=== PATIENT | female | born 1960 | race Caucasian/White ===

== ENCOUNTER → 2023-11-23 14:22 | Outpatient (REF) | payer OTHER, SELFPAY | LOC: PAVMRI 14:22 | PROVIDERS: ATTENDING PHYSICIAN Psychiatry & Neurology Neurology | DX: G37.9 Demyelinating disease of central nervous system, unspecified (principal) | CPT/HCPCS: 70551; 72141; 72146 ==

== ENCOUNTER 2023-12-29 10:25 | Emergency (ER) | payer OTHER, SELFPAY ==
[2023-12-29 10:28] VITALS: BP 155/64
--- NOTE | 2023-12-29 10:39 | ED.GENMED ---
History of Present Illness
General
Chief Complaint: Rabies
Source: patient
Exam Limitations: none
Time Seen by Provider: 12/29/23 10:35
Nursing documentation reviewed up to this point in time: agreed with
History of Present Illness
History of Present Illness:
Patient is a 63-year-old female presenting to the emergency department following a bat exposure last night. Patient woke up yesterday evening and there was a bat flying in her bedroom. Patient's does state that he believes that she
'screamed 'which is when he came into the room also seeing the bat flying around. There is no known bite. Patient otherwise well with no other complaints today.
Patient did recently have a tetanus shot last week after a minor dog bite. She tolerated that vaccination well.
Patient did experience some vague neurologic symptoms many years ago and follows with neurology every 6 months. She did recently have a clean MRI few months ago. The symptoms did appear about a week following a flu vaccination although it was
never determined if it had any relation to vaccine. She was previously being worked up for MS at the time. Patient denies any current neurological findings. No history of known vaccination related complications.
Past History
Past History
ED Past Medical History: Hypothyroidism and Other (Back pain, sciatica, neck pain)
ED Past Surgical History: None
Social History
Tobacco: Non-smoker
Alcohol: None
Drug: None
Personal:
Living: with family
Employment: Employed
Family History
Family History: Other (Noncontributory)
Review of Systems
Review of Systems
Allergies reviewed?: Yes
All Other Systems: ROS reviewed and negative except as documented in HPI and ROS
Phy Exam
Physical Exam
Physical Exam:
Vitals: Hypertensive, otherwise vital signs stable. Afebrile
General: Patient is well appearing, no acute distress. Nontoxic appearing
Skin: Warm and dry, no rashes or lesions. Well-healing abrasion on left dorsal hand without any surrounding erythema, edema. No obvious bite mares.
Head: Normocephalic, atraumatic
Throat: Protecting airway
Neck: Normal ROM
Cardiac: Regular rate and rhythm, no murmurs.
Pulm: Normal respiratory effort, no wheezes, rales, rhonchi heard on exam.
Abdomen: Nondistended
Extremities: No evidence of cyanosis or edema
Neuro: Grossly intact
Psychiatric: Normal affect.
Course
Orders/Labs/Results
Orders:
Orders
12/29/23 11:55
Rabies Immune Globulin/Pf [HyperRAB] 1,700 unit IM NOW STA
12/29/23 12:00
Rabies Vaccine (Pcec)/Pf [Rabavert Rabies Vacc W-Diluent] 2.5 unit IM .ONCE ONE
Vital Signs
Initial and Last Documented VS:
Initial Vital Signs
Temp Pulse Resp BP Pulse Ox
99.1 F 72 18 155/64 98
12/29/23 10:28 12/29/23 10:28 12/29/23 10:28 12/29/23 10:28 12/29/23 10:28
Last Documented Vital Signs
Temp Pulse Resp BP Pulse Ox
99.1 F 72 18 155/64 98
12/29/23 10:28 12/29/23 10:28 12/29/23 10:28 12/29/23 10:28 12/29/23 10:28
MDM/Problems Addressed
Differential Diagnosis Includes:
Not limited to: Need for rabies prophylaxis
MDM/Problems Addressed:
63-year-old female presenting to the emergency department following bat exposure last night. Patient woke with bat flying around bedroom. No known bite. No other complaints. Vital stable. Physical exam as above. Patient well-appearing in no
apparent distress. She has no obvious bite mares on skin. Patient did have recent dog bite about 1 week ago on left hand which appears to be healing well without any findings suggestive of a cellulitis. Patient did receive Tdap vaccine at that
time which she tolerated well. Given unknown nature of possible bat bite given patient was asleep�to disc rabies immunoglobulin/vaccine prophylactically today with patient. Seems that patient had some vague neurologic symptoms many years ago
following a flu vaccine which was never linked to actual flu vaccine rather prompted a workup for possible MS. No diagnosis of MS at this time�patient follows with neurology closely to this day. Patient without any history of known vaccination
reactions. Shared decision making with patient. Patient did receive rabies immunoglobulin at 20 mL/kg and dose 1 of rabies vaccine in emergency department. Patient tolerated well. Patient will have remaining 3 rabies vaccination set up with
infusion center. Return precautions discussed. Patient seen with attending physician.
Chronic conditions affecting care:
N/A
Acute Exacerbation and/or Progression of Chronic Illness:
N/A
*Pulse Oximetry
Patient hypoxic: no
*EKG
Interpreted by ED Provider?: NA
*2Nd Grade Teacher Interpretation
Rate: 2Nd Grade Teacher- N/A
*Critical Care Note
Total Time (30-74mins, 75-104mins- exclusive of procedures): Not Applicable
ED Attending Note
-
Portions of this chart may have been created with voice recognition software.� Occasional wrong word or��sound alike� substitutions may have occurred due to the inherent limitations of voice recognition software.
Discharge Plan
Departure
Patient Disposition: Home (Routine Discharge)
Date of Disposition: 12/29/23
Time of Disposition: 12:16
Patient with high blood pressure during this ER visit?: Yes
Condition: Good
Covid-19: Not Applicable
Discharge Problem:
Rabies, need for prophylactic vaccination against
Instructions: BLOOD PRESSURE, Rabies
Prescriptions:
New
RabAvert (PF) 2.5 unit suspension for reconstitution
2.5 unit IM ONCE Qty: 3 0RF
Rx Instructions:
Inject 1mL on 01/01/24, 01/05/24, 01/12/24
No Action
aspirin 81 MG tablet,delayed release (DR/EC)
81 mg PO DAILY
levothyroxine 50 mcg Tablet
50 mcg PO DAILY
ibuprofen 200 mg capsule
200 mg PO Q8H PRN (Reason: fever or pain) Qty: 1 0RF
Rx Instructions:
Hold aspirin while on it ; use if for 3-4 days
Referrals:
Carmen Corey PA-C [Family Provider] -
Stand Alone Forms: Rabies Vaccine Post Exp Dosing
Activity Restrictions/Additional Instructions:
RETURN TO THE EMERGENCY DEPARTMENT WITH ANY FEVERS, SIGNIFICANT REDNESS, PAIN, OR SWELLING NEAR INJECTION SITES, SHORTNESS OF BREATH, RASH, OR ANY OTHER CONCERNS
-As discussed you will require 3 additional rabies vaccinations. They should be completed on 01/01/24, 01/05/24, 01/12/24. You should call the infusion center when you leave the department today and schedule these vaccinations
-Follow-up with primary care as needed
Monitor your symptoms closely and return to the emergency department any acute worsening/new symptoms
Interventions
Interventions:
*Risk Screen - Suicide Last Done: 12/29/23 10:28
*General Assessment Last Done: 12/29/23 10:28
*Neglect/Abuse Screening Last Done: 12/29/23 10:28
ED- Fall Risk Assessment Last Done: 12/29/23 10:38
*ED COVID-19 Vaccine History Last Done: 12/29/23 10:37
Discharge Date and Time
Print Language: DJIBOUTIAN
[2023-12-29] MEDS: HyperRAB 1700 UNIT IM (12:33)
[2023-12-29] MEDS: RABAVERT RABIES VACC W-DILUENT 2.5 UNIT IM (12:33)
[2023-12-29 13:00] VITALS: BP 146/84
== END 2023-12-29 13:01 | disposition home or self-care (01) ==
LOC: EMR 10:25
PROVIDERS: EMERGENCY PHYSICIAN Emergency Medicine; FAMILY PHYSICIAN Physician Assistant
DX: Z20.3 Contact with and (suspected) exposure to rabies (principal); Z23 Encounter for immunization; Z29.14 Encounter for prophylactic rabies immune globulin; E03.9 Hypothyroidism, unspecified
CPT/HCPCS: 99282; 90471; 96372; 90375; 90675

== ENCOUNTER 2024-01-01 13:09 | Outpatient (RCR) | payer OTHER, SELFPAY ==
[2024-01-01 13:29] VITALS: BP 118/70
[2024-01-01] MEDS: RABAVERT RABIES VACC W-DILUENT 2.5 UNIT IM (13:35)
== END 2024-01-02 23:59 | disposition home or self-care (01) ==
LOC: OID 13:09
PROVIDERS: ATTENDING PHYSICIAN Physician Assistant; FAMILY PHYSICIAN Physician Assistant
DX: Z23 Encounter for immunization (principal); Z20.3 Contact with and (suspected) exposure to rabies
CPT/HCPCS: 90471; 90675

== ENCOUNTER 2024-01-12 10:39 | Outpatient (RCR) | payer OTHER, SELFPAY ==
[2024-01-05 10:58] VITALS: BP 157/57
[2024-01-05] MEDS: RABAVERT RABIES VACC W-DILUENT 2.5 UNIT IM (11:10)
[2024-01-12] MEDS: RABAVERT RABIES VACC W-DILUENT 2.5 UNIT IM (10:52)
[2024-01-12 11:01] VITALS: BP 163/63
== END 2024-01-13 08:51 | disposition home or self-care (01) ==
LOC: OID 10:39
PROVIDERS: ATTENDING PHYSICIAN Physician Assistant; FAMILY PHYSICIAN Physician Assistant
DX: Z20.3 Contact with and (suspected) exposure to rabies (principal); Z23 Encounter for immunization
CPT/HCPCS: 90471; 90675

== ENCOUNTER → 2024-04-05 15:30 | Outpatient (REF) | payer OTHER, SELFPAY | LOC: HWWDC 15:30 | PROVIDERS: ATTENDING PHYSICIAN Internal Medicine | DX: Z12.31 Encounter for screening mammogram for malignant neoplasm of breast (principal) | CPT/HCPCS: 77063; 77067 ==

== ENCOUNTER → 2024-04-19 10:27 | Outpatient (REF) | payer OTHER, SELFPAY | LOC: RAD 10:27 | PROVIDERS: ATTENDING PHYSICIAN Physician Assistant; FAMILY PHYSICIAN Internal Medicine | DX: M25.551 Pain in right hip (principal); M54.50 Low back pain, unspecified | CPT/HCPCS: 72110; 73502 ==

== ENCOUNTER → 2024-05-27 09:58 | Outpatient (REF) | payer OTHER, SELFPAY | LOC: MRI 3T 09:58 | PROVIDERS: ATTENDING PHYSICIAN Nurse Practitioner | DX: K86.9 Disease of pancreas, unspecified (principal) | CPT/HCPCS: 74183; A9575 ==

== ENCOUNTER 2024-09-09 06:20 | Day surgery (SDC) | payer OTHER, SELFPAY | END 2024-09-09 11:51 | disposition home or self-care (01) | LOC: GI 06:20 | PROVIDERS: ATTENDING PHYSICIAN Internal Medicine Gastroenterology | DX: K44.9 Diaphragmatic hernia without obstruction or gangrene (principal); K31.89 Other diseases of stomach and duodenum; R13.10 Dysphagia, unspecified; R12 Heartburn | CPT/HCPCS: 43239; 88305; 88342 ==

== ENCOUNTER 2024-10-11 16:53 | Emergency (ER) | payer OTHER, SELFPAY ==
[2024-10-11 16:58] VITALS: BP 161/93
[2024-10-11 17:32] LABS: % Basophils 0.4 % (0-2); % Eosinophils 0.3 % (0-6); % Immature Granulocytes 0.3 % (0-0.5); % Monocytes 5.3 % (1.7-9.3); % Neutrophils 69.7 % (42.2-75.2); Absolute Basophils 0.1 10^3/uL (0-0.2); Absolute Lymphocytes 3.1 10^3/uL (1.2-3.4); Absolute Monocytes 0.7 10^3/uL (0.1-0.6); Hematocrit 44.1 % (37.0-47.0); Hemoglobin 15.7 g/dL (12.0-16.0); Mean Corp Hgb Conc. 35.6 g/dL (33.0-37.0); Mean Corpuscular Hgb 31.7 pg (27.0-31.0); Mean Corpuscular Volume 89.1 fL (81.0-99.0); Mean Platelet Volume 10.7 fL (7.4-10.4); Nucleated Red Blood Cells % 0 %; Platelet Count 252 10^3/uL (130-400); Red Blood Cell Count 4.95 10^6/uL (4.20-5.40); Red Cell Dist. Width 11.9 % (11.5-14.5)
[2024-10-11 17:54] LABS: ALT (SGPT) 15 U/L (0-35); AST (SGOT) 17 U/L (14-36); Albumin 4.3 g/dl (3.5-5.0); Alkaline Phosphatase 95 U/L (38-126); Blood Urea Nitrogen 20 mg/dl (7-17); Calcium 9.4 mg/dl (8.4-10.2); Carbon Dioxide 25 mmol/L (22-30); Chloride 104 mmol/L (98-107); Glucose 158 mg/dl (70-99); Potassium 4.3 mmol/L (3.5-5.1); Sodium 137 mmol/L (135-145); Total Bilirubin 0.7 mg/dl (0.2-1.3); Total Protein 7.1 g/dl (6.3-8.2); eGFR > 60.00
[2024-10-11 17:57] LABS: Troponin I < 0.012 ng/ml
[2024-10-11 18:08] VITALS: BP 168/111
--- NOTE | 2024-10-11 18:08 | ED.GENMED ---
History of Present Illness
General
Chief Complaint: Post Operative Problem(s)
Source: patient
Exam Limitations: none
Time Seen by Provider: 10/11/24 17:54
Nursing documentation reviewed up to this point in time: agreed with
History of Present Illness
History of Present Illness:
64-year-old female with history as noted presents to the ER for evaluation of neck pain, headache, brain fog/dizziness. Patient notably had 2 dental implants left lower jaw on 10/[address] Lewis, a cna in [place]. Patient reports that a
few days later she started to develop some soreness in the left side of her neck as well as some headache (she describes 'scalp soreness'), dizziness and brain fog. The symptoms have been consistent since then. She had been on a Medrol Dosepak
postoperatively and initially she attributed these symptoms to the steroid however she discontinued the steroid 2 days ago and has not had any improvement and so she was referred to the ER to be evaluated. She denies any fevers or chills. Denies
any cough, chest pain or respiratory issues. She denies any sore throat. She denies any trauma. She denies any other complaints.
Past History
Past History
ED Past Medical History: Hypothyroidism and Other (Back pain, sciatica, neck pain)
ED Past Surgical History: None
Social History
Tobacco: Non-smoker
Alcohol: None
Drug: None
Personal:
Living: with family
Employment: Employed
Family History
Family History: Other (Noncontributory)
Review of Systems
Review of Systems
All Other Systems: ROS reviewed and negative except as documented in HPI and ROS
Constitutional: Reports fatigue; Denies fever or chills
EENT: Denies sore throat or runny nose
Respiratory: Denies cough or trouble breathing
Cardiac: Denies chest pain
ABD/GI: Denies abdominal pain, vomiting or diarrhea
: Denies flank pain
Musculoskeletal: Reports neck pain; Denies back pain
Neurological: Reports dizzy and headache; Denies weakness or numbness
Phy Exam
Physical Exam
Physical Exam:
General: Awake, alert, oriented x3; no acute distress
Head: Normocephalic, atraumatic
Eyes: Conjunctiva normal, EOMI, pupils equal round and reactive to light bilaterally
Throat: Airway intact, handling secretions
Neck: Trachea midline, supple without meningismus, full range of motion with minimal pain; she has some mild tenderness along the left upper trapezius but no midline cervical spine tenderness
Lungs: Clear to auscultation bilaterally, no wheezing, rales, rhonchi
Heart: Regular rate and rhythm, no murmurs, gallops, or rubs
Neuro: Cranial nerves intact, speech fluid without dysarthria or aphasia, no limb ataxia, motor and sensory intact in all extremities
Skin: no rash in area of concern
Extremities: No edema in extremities, equal pulses in all extremities
Scores
Heart Failure Risk
Heart Failure Risk Score: Not Applicable
Heart Score for Chest Pain Patients
STEMI patient?: Not applicable
Withdrawal Assessment of Alcohol
Withdrawal Assessment Completed?: Not applicable
Sepsis
Sepsis Screening
Sepsis Assessment: Sepsis Ruled Out
Sepsis Screen
Sepsis Screen: Sepsis Ruled Out
Date: 10/11/24
Time: 20:54
Course
Orders/Labs/Results
Orders:
Orders
10/11/24 17:04
EKG [Electrocardiogram (*1)] Urgent
Reason for Study: Vertigo / Dizzy
EKG- Treatment ONCE
10/11/24 17:25
Complete Blood Count/With Diff Urgent
Comprehensive Metabolic Panel Urgent
Troponin I Urgent
10/11/24 18:07
CT Head & Neck Angio W/wo IV Urgent
Comment:
Reason For Exam: left neck pain, headache, dizziness
Abnormal Lab Results
10/11/24
17:25
WBC 13.0 H 10^3/uL
(4.8-10.8)
MCH 31.7 H pg
(27.0-31.0)
MPV 10.7 H fL
(7.4-10.4)
Absolute Neuts (auto) 9.0 H 10^3/uL
(1.4-6.5)
Absolute Monos (auto) 0.7 H 10^3/uL
(0.1-0.6)
BUN 20 H mg/dl
(7-17)
Glucose 158 H mg/dl
(70-99)
10/11/24 17:25
10/11/24 17:25
Vital Signs
Initial and Last Documented VS:
Initial Vital Signs
Temp Pulse Resp BP Pulse Ox
36.6 C 105 16 161/93 96
10/11/24 16:58 10/11/24 16:58 10/11/24 16:58 10/11/24 16:58 10/11/24 16:58
Last Documented Vital Signs
Temp Pulse Resp BP Pulse Ox
36.6 C 84 18 133/62 98
10/11/24 16:58 10/11/24 20:28 10/11/24 20:28 10/11/24 20:28 10/11/24 20:28
MDM/Problems Addressed
Differential Diagnosis Includes:
Neck strain, vertebral/carotid dissection, postoperative infection/abscess, referred postoperative pain; very low clinical suspicion for meningitis without fever, no vomiting, no meningeal signs and with 6 days of symptoms with generally benign
appearance on exam
MDM/Problems Addressed:
64-year-old female presents for evaluation of neck pain, headache and dizziness for the past few days in setting of recent dental implants. Hypertensive and mildly tachycardic but otherwise normal vitals. Physical exam as above. She had lab work
sent in triage including a CBC which showed a marginal leukocytosis in the setting of recent steroid use. CMP no clinically significant abnormalities. Plan to check CT of the head and neck to rule out dissection or postoperative collection. Will
reassess after the above.
CTA head and neck negative for any acute abnormality�no infection or vascular pathology noted. Vitals have been stable throughout ED stay. Low suspicion for emergent pathology at this point; symptoms could be residual side effect from steroid use,
postprocedural pain or simply torticollis/neck strain. I think she is stable for discharge can follow-up with her primary doctor as well as her dentist/cna as an outpatient. Continue NSAIDs and Tylenol as needed for pain. Patient feels
comfortable with this plan. Spoke about return precautions. All questions answered.
Acute Exacerbation and/or Progression of Chronic Illness:
Acute hypertensive
Acute Exacerbation and/or Progression of Chronic Illness: HTN
*Radiology
Radiology exam reviewed: radiology read reviewed
*Pulse Oximetry
Patient hypoxic: no
*EKG
Interpreted by ED Provider?: Yes
Heart Rate: 94
Rate: normal
Rhythm: sinus
[place]: normal axis
Interval: normal interval
QRS Pattern: normal QRS
Ischemia: no ischemia
*Critical Care Note
Total Time (30-74mins, 75-104mins- exclusive of procedures): Not Applicable
Data Reviewed
Source: patient and family (Son)
Further Testing Considered But Not Given:
Considered need for lumbar puncture
ED Attending Note
-
Portions of this chart may have been created with voice recognition software.� Occasional wrong word or��sound alike� substitutions may have occurred due to the inherent limitations of voice recognition software.
Discharge Plan
Departure
Patient Disposition: Home (Routine Discharge)
Date of Disposition: 10/11/24
Time of Disposition: 20:44
Patient with high blood pressure during this ER visit?: Yes
Discharge Problem:
Neck pain
Instructions: Neck pain - ED discharge instructions
Prescriptions:
No Action
levothyroxine 50 mcg Tablet
50 mcg PO DAILY
ibuprofen 200 mg capsule
200 mg PO Q8H PRN (Reason: fever or pain) Qty: 1 0RF
Rx Instructions:
Hold aspirin while on it ; use if for 3-4 days
RabAvert (PF) 2.5 unit suspension for reconstitution
2.5 unit IM ONCE Qty: 3 0RF
Rx Instructions:
Inject 1mL on 01/01/24, 01/05/24, 01/12/24
Referrals:
Adolfo Sigala MD [Family Provider, Internal Medicine] - Call in 1-3 days for appt
Activity Restrictions/Additional Instructions:
Thank you for visiting the Emergency Department at [facility].
1. Please schedule a follow up appointment as directed. Call first thing tomorrow morning to make an appointment.
2. If indicated, please take your medications as instructed and indicated on discharge paperwork.
3. If any of your symptoms do not improve, or persist, or become more severe within 6-12 hours, please return to the emergency department for further care.
4. Please return to the emergency department if you develop a headache, neck pain/stiffness, fever greater than 100.4F, chest pain, shortness of breath, persistent nausea, vomiting, slurred speech, difficulty walking, numbness/tingling, weakness,
signs of infection or any other symptoms that are worrisome to you.
Please call [phone] if you have any questions.
Interventions
Interventions:
*Risk Screen - Suicide Last Done: 10/11/24 16:58
*General Assessment Last Done: 10/11/24 16:58
*Neglect/Abuse Screening Last Done: 10/11/24 19:51
*ED- Fall Risk Assessment Last Done: 10/11/24 18:20
*ED COVID-19 Vaccine History Last Done: 10/11/24 18:20
ED-Skin Assessment Last Done: 10/11/24 18:40
Discharge Date and Time
Print Language: ALBANIAN
[2024-10-11 18:10] VITALS: BMI 34.9
[2024-10-11 19:00] VITALS: BP 167/70
[2024-10-11 20:28] VITALS: BP 133/62
== END 2024-10-11 21:00 | disposition home or self-care (01) ==
LOC: EMR 16:53
PROVIDERS: Emergency Medicine; EMERGENCY PHYSICIAN Emergency Medicine; FAMILY PHYSICIAN Internal Medicine
DX: M54.2 Cervicalgia (principal); E03.9 Hypothyroidism, unspecified; I10 Essential (primary) hypertension
CPT/HCPCS: 99284; 70496; 70498; 80053; 84484; 85025; 93005; Q9967

== ENCOUNTER → 2024-10-17 09:05 | Outpatient (REF) | payer OTHER, SELFPAY | LOC: HWRAD 09:05 | PROVIDERS: ATTENDING PHYSICIAN Internal Medicine; FAMILY PHYSICIAN Internal Medicine | DX: R05.3 Chronic cough (principal) | CPT/HCPCS: 71046 ==

== ENCOUNTER 2024-10-25 10:17 | Inpatient (IN) | payer OTHER, SELFPAY ==
[2024-10-23 17:33] VITALS: BP 177/65
--- NOTE | 2024-10-23 18:10 | ED.GENMED ---
History of Present Illness
General
Chief Complaint: Numbness
Time Seen by Provider: 10/23/24 18:09
History of Present Illness
History of Present Illness:
TIME OF INITIAL EVALUATION
- 6:15 PM
REVIEW OF OLD RECORDS
- Dental implants October 03, 2024, hypothyroidism. The patient was here for endoscopy 09/09/2024. The patient was here with neck pain October 11, 2024, at that time white count was 13.0, chemistries and troponin relatively unremarkable.
Note:
CHIEF COMPLAINT(S)
Numbness on the right side of the face, dizziness, blurred vision.
HISTORY OF PRESENT ILLNESS
The patient is a 64-year-old female with a history of dizziness and weakness following dental implants placed on the left side. Symptoms began three days after the procedure, with dizziness and neck pain initially, and have evolved to include
numbness on the right side of the face. The patient also reports disorientation, blurred vision, and intermittent diplopia, particularly while attempting to drive. The symptoms have progressively worsened over the past two months. Despite the
neurological evaluation and persistent follow-up, no definitive diagnosis has been made. 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
acute disseminated encephalomyelitis (ADEM). Current neurological findings reveal stable sensation and strength, with cranial nerve assessment showing normal function. Prior imaging and labs from ER and outpatient visits have reportedly been normal.
ADDITIONAL HISTORY OBTAINED FROM SOURCES OTHER THAN THE PATIENT
According to prior medical evaluations, there were no stroke-related findings on CT imaging.
EXTERNAL RECORDS REVIEWED
Review of prior MRIs with neurologists has shown no significant abnormalities. Laboratory tests, as interpreted from the patient�s report, have returned normal.
CHRONIC MEDICAL CONDITIONS SIGNIFICANTLY AFFECTING CARE
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
REVIEW OF SYSTEMS
- Neurological: Weakness, dizziness, numbness on the right side of the face, blurred vision, diplopia.
- Vision: Blurred vision noted with both eyes open.
- Musculoskeletal: No weakness or coordination issues noted.
- General: No recent fever reported.
PHYSICAL EXAM
- Neurological: Normal cranial nerve function including facial sensation and motor testing. Coordination appeared intact with finger-nose testing. No dysmetria noted.
- Ophthalmologic: Visual acuity testing with noted reduction in visual clarity with both eyes open. Normal ocular motility. Visual acuity approximately 20/25 in each eye individually, 20/40 with both eyes.
- Oral examination: No swelling or visible abnormalities noted at the site of dental implants.
- General: Well appearing in no distress
- Cardiovascular: No murmurs, normal heart rate, regular rhythm, No chest wall tenderness
- Pulmonary: No respiratory distress, breath sounds are clear and equal
- Abdomen: Soft with no peritoneal signs, no tenderness
- Psychiatric: Appropriate mental status, normal insight and judgement
- Extremities: Nontender, no edema, moves all extremities equally
- Skin: No rash, no lesions
PLAN
The plan includes contacting the on-call neurologist to discuss the necessity of further MRI imaging to evaluate the current symptomatology. The patient is to follow up with their primary care physician and have the pending MRI performed as
scheduled.
DIFFERENTIAL DIAGNOSIS
The Differential Diagnosis includes, in no particular order and is not limited to:
- Trigeminal neuropathy
- Idiopathic intracranial hypertension
- Multiple sclerosis
- Acute disseminated encephalomyelitis (ADEM)
- Dental implant-related nerve injury
- Transient ischemic attack
- Peripheral vestibular disorder
- Central vestibular disorder
- Stroke or brain ischemia
- Migraine with aura
RADIOLOGY
- MRI pending for tomorrow
EKG
- Not indicated
LABS
- CBC and chemistries unremarkable however the glucose is noted to be 164
UPDATE
-10/23/24 - 18:43
Patient has been under neurological observation for possible multiple sclerosis (MS) over the past three years. Multiple MRIs have shown findings suggestive of MS, although no formal diagnosis has been made due to the lack of clinical symptoms.
Initial concerns arose following a flu shot taken 10 days prior to the onset of symptoms three years ago. The patient reports ongoing MRI reports suggest MS without new lesions. Recently, the patient has experienced new, atypical symptoms including
numbness and vision changes, which may correlate with MS manifestations. A note has been sent to both the radiologist and neurologist for further assessment. Outpatient management is being considered pending specialist feedback.
SUMMARY OF ENCOUNTER
The patient presented with symptoms that have progressively worsened over the past two months including numbness on the right side of the face, dizziness, blurred vision, and disorientation. These symptoms began following a dental procedure. Despite
previous evaluations, no definitive diagnosis has been established. Management involved discussions with radiology and neurology to determine the appropriate timing for MRI imaging.
MANAGEMENT OF THE PATIENTS CARE WAS DISCUSSED WITH
I discussed the case with radiology and neurology, specifically Dr. Cortez.
PLAN
The patient is to be admitted to the hospital for an MRI scheduled for tomorrow, as recommended by neurology.
PATHOLOGIES TO CONSIDER
- Stroke or brain ischemia
- Multiple sclerosis
- Acute disseminated encephalomyelitis (ADEM)
- Trigeminal neuropathy
- Transient ischemic attack
Past History
Past History
ED Past Medical History: Hypothyroidism and Other (Back pain, sciatica, neck pain)
ED Past Surgical History: None
Social History
Tobacco: Non-smoker
Alcohol: None
Drug: None
Personal:
Living: with family
Employment: Employed
Family History
Family History: Other (Noncontributory)
Phy Exam
Physical Exam
Physical Exam:
See HPI
Course
Orders/Labs/Results
Orders:
Orders
10/23/24 19:12
Basic Metabolic Panel Urgent
Complete Blood Count/With Diff Urgent
Abnormal Lab Results
10/23/24
19:12
MCH 32.1 H pg
(27.0-31.0)
MPV 10.7 H fL
(7.4-10.4)
Chloride 111 H mmol/L
(98-107)
Glucose 164 H mg/dl
(70-99)
10/23/24 19:12
10/23/24 19:12
Vital Signs
Initial and Last Documented VS:
Initial Vital Signs
Temp Pulse Resp BP Pulse Ox
37.1 C 77 18 177/65 98
10/23/24 17:33 10/23/24 17:33 10/23/24 17:33 10/23/24 17:33 10/23/24 17:33
Last Documented Vital Signs
Temp Pulse Resp BP Pulse Ox
37.1 C 73 16 147/65 98
10/23/24 17:33 10/23/24 18:41 10/23/24 18:41 10/23/24 18:41 10/23/24 18:41
*Pulse Oximetry
SaO2: 98
Oxygen Mode of Delivery: Room air
Patient hypoxic: no
*Critical Care Note
Total Time (30-74mins, 75-104mins- exclusive of procedures): Not Applicable
ED Attending Note
-
Portions of this chart may have been created with voice recognition software.� Occasional wrong word or��sound alike� substitutions may have occurred due to the inherent limitations of voice recognition software.
Discharge Plan
Departure
Prescriptions:
No Action
levothyroxine 50 mcg Tablet
50 mcg PO DAILY
ibuprofen 200 mg capsule
200 mg PO Q8H PRN (Reason: fever or pain) Qty: 1 0RF
Rx Instructions:
Hold aspirin while on it ; use if for 3-4 days
RabAvert (PF) 2.5 unit suspension for reconstitution
2.5 unit IM ONCE Qty: 3 0RF
Rx Instructions:
Inject 1mL on 01/01/24, 01/05/24, 01/12/24
Referrals:
UNKNOWN - PT DOES,NOT KNOW [Unknown Provider]
Interventions
Interventions:
*Risk Screen - Suicide Last Done: 10/23/24 17:34
*General Assessment Last Done: 10/23/24 17:34
*Neglect/Abuse Screening Last Done: 10/23/24 17:34
*ED- Fall Risk Assessment Last Done: 10/23/24 18:41
*ED COVID-19 Vaccine History Last Done: 10/23/24 18:41
ED- Neurological Assessment Last Done: 10/23/24 18:41
Discharge Date and Time
Print Language: COMORAN
[2024-10-23 18:41] VITALS: BP 147/65
[2024-10-23 19:21] LABS: % Basophils 0.5 % (0-2); % Eosinophils 0.2 % (0-6); % Immature Granulocytes 0.1 % (0-0.5); % Lymphocytes 30.4 % (20.5-51.1); % Monocytes 4.2 % (1.7-9.3); % Neutrophils 64.6 % (42.2-75.2); Absolute Lymphocytes 2.5 10^3/uL (1.2-3.4); Absolute Monocytes 0.3 10^3/uL (0.1-0.6); Absolute Neutrophils 5.2 10^3/uL (1.4-6.5); Hematocrit 39.1 % (37.0-47.0); Hemoglobin 13.9 g/dL (12.0-16.0); Mean Corp Hgb Conc. 35.5 g/dL (33.0-37.0); Mean Corpuscular Hgb 32.1 pg (27.0-31.0); Mean Corpuscular Volume 90.3 fL (81.0-99.0); Mean Platelet Volume 10.7 fL (7.4-10.4); Nucleated Red Blood Cells % 0 %; Platelet Count 205 10^3/uL (130-400); Red Blood Cell Count 4.33 10^6/uL (4.20-5.40); Red Cell Dist. Width 12.2 % (11.5-14.5); White Blood Cell Count 8.1 10^3/uL (4.8-10.8)
[2024-10-23 19:44] LABS: Blood Urea Nitrogen 16 mg/dl (7-17); Calcium 8.8 mg/dl (8.4-10.2); Carbon Dioxide 24 mmol/L (22-30); Chloride 111 mmol/L (98-107); Glucose 164 mg/dl (70-99); Potassium 3.8 mmol/L (3.5-5.1); Sodium 141 mmol/L (135-145); eGFR > 60.00
--- NOTE | 2024-10-23 20:08 | HPS.HSE ---
Family Physician
-
Family Physician: Adolfo Sigala
Chief Complaint
-
blurred / double vision, R facial paresthesias after L lower dental implants 10/04
History of Present Illness
HPI
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 she was seen at ER:
- for dizziness and weakness following dental implants(10/04/24) placed on the left side.
- dizziness and neck pain initially, and have evolved to include numbness on the right side of the face.
- patient also reports disorientation, blurred vision, and intermittent diplopia, particularly while attempting to drive.
- symptoms have progressively worsened over the past two months.
- Despite the neurological evaluation and persistent follow-up, no definitive diagnosis has been made.
- Current neurological findings reveal stable sensation and strength, with cranial nerve assessment showing normal function. - Prior imaging and labs from ER and outpatient visits have reportedly been normal.
Medical History
Past Medical History
Past Medical History: Reports Hypothyroidism
Past Surgical History: Reports None
Social History
Tobacco: Non-smoker
Alcohol: None
Personal:
Living: With Family
Family History
Family History: Not pertinent
Allergies / Home Medications
Allergies reflects when Allergies were last updated in [email or web address].
Home Medications with original date entered in [email or web address]
Allergy/Medication List:
Allergies
Allergy/AdvReac Type Severity Reaction Status Date / Time
cephalexin monohydrate Allergy Unknown Unknown Verified 03/16/22 02:30
[From [facility]]
Home Medications
aspirin 81 mg tablet,delayed release 81 mg PO DAILY 10/26/20
levothyroxine 50 mcg tablet 50 mcg PO DAILY 03/14/22
Review of Systems
-
Constitutional: Reports No Symptoms
EENT: Reports No Symptoms
Respiratory: Reports No Symptoms
Cardiac: Reports No Symptoms
Abdomen/GI: Reports No Symptoms
: Reports No Symptoms
Musculoskeletal: Reports No Symptoms
Skin: Reports No Symptoms
Neurological: Reports See HPI
Endocrine: Reports No Symptoms
Hematologic/Lymphatic: Reports No Symptoms
Psych: Reports No Symptoms
Physical Exam
Vital Signs
Vital Signs
Temp Pulse Resp BP Pulse Ox
98.7 F 73 16 147/65 98
10/23/24 17:33 10/23/24 18:41 10/23/24 18:41 10/23/24 18:41 10/23/24 18:41
Physical Exam
General: Well Developed, Well Nourished and No Apparent Distress
HEENT: NormoCephalic, Moist mucous membranes and Atraumatic
Respiratory: Clear
Cardiac: S1/S2 and Regular Rhythm; No Murmur or Rub
GI: Soft, Non Tender, Non Distended and Normal Bowel Sounds; No Organomegaly
Rectal: Deferred by Provider
Musculoskeletal: No Clubbing, No Cyanosis and No Edema
Skin: No Rash
Neuro: Nonfocal/grossly intact
Laboratory Results
-
10/23/24 19:12
10/23/24 19:12
Data Reviewed
-
CT Scan: Report Reviewed by me
Medical Tests (Nuc Med, Echo, EKG etc): Report Reviewed by me
Lab Data: Labs Reviewed by me
Old Records: Reviewed
Impression/Plan
-
Relevant VS
10/23/24
17:33 10/23/24
18:41
Temp 98.7 F
Pulse 77
Resp Rate 18
Blood pressure 177/65 147/65
SaO2 98
Oxygen Mode of Delivery Room air
10/11/24 EKG
NORMAL SINUS RHYTHM
NORMAL ECG
WHEN COMPARED WITH ECG OF 26-NOV-2021 11:55,
NO SIGNIFICANT CHANGE WAS FOUND
Confirmed by ANTONI CARLSON, [id number] on 10/12/2024 7:19:41 AM
10/11/24 H & N CTA
No significant vascular occlusion, aneurysm or dissection.
11/23/23 MR Brain Without Contrast
1. Moderate demyelinating disease (MULTIPLE SCLEROSIS) in the cerebral hemispheres and right middle cerebellar peduncle which appears unchanged from 03/19/2023.
2. Mild cerebral and cerebellar volume loss.
11/23/23 MRI of the thoracic spine without contrast
- No definite evidence for thoracic spinal cord signal intensity abnormality, with no convincing evidence for focal area of demyelination on today's exam.
- No evidence for spinal cord compression or central canal stenosis.
Last hospitalist admission:
ASSESSMENT & PLAN
Pending Rx reconciliation
Subacute abnormal vision ( diplopia) and r facial paresthesias after L lower dental implants 10/04. ? MS
No significant vascular occlusion, aneurysm or dissection. per recwent H & N CTA
Upon arrival to ER NIHSS 0
Subjectively patient is concern MS
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
- ER dw Neurologist suggest observation and MRI Brain in AM
Prior Brain MRI report of Moderate demyelinating disease (MULTIPLE SCLEROSIS) in the cerebral hemispheres and right middle cerebellar peduncle which appears unchanged from 03/19/2023.
- Brain MRI with contract for AM
Hypothyroidism
- TSH
- continue Synthroid
HX diffuse hepatic steatosis
Diverticulosis
DVT Px: LMWH
Full code
OBS MS
[2024-10-23 21:35] VITALS: BP 147/74; BMI 31.3
[2024-10-23 23:25] VITALS: BP 149/57
--- NOTE | 2024-10-24 01:19 | PTCARENOTE ---
Addendum entered by Davion Patel RN 10/24/24 07:09:
Pt unsure about her home medications and dosage.
Original Note:
Pt aaox3 able to make her needs known.Pt encouraged to call for help as needed.Pt denies of any pain at this time.No orders for telemetry or NIH at this time [employer] O[employer]ATOR regional transfer liaison made aware of it, pt refused scd boots.Plan of care continued on pt.Pt
oriented to room & call [place] in reach.
[2024-10-24] MEDS: PEPCID 20 MG PO (05:38)
[2024-10-24 07:05] VITALS: BP 168/77
[2024-10-24 07:06] LABS: Hematocrit 36.8 % (37.0-47.0); Hemoglobin 13.1 g/dL (12.0-16.0); Mean Corp Hgb Conc. 35.6 g/dL (33.0-37.0); Mean Corpuscular Hgb 32.1 pg (27.0-31.0); Mean Corpuscular Volume 90.2 fL (81.0-99.0); Mean Platelet Volume 10.8 fL (7.4-10.4); Platelet Count 185 10^3/uL (130-400); Red Blood Cell Count 4.08 10^6/uL (4.20-5.40); Red Cell Dist. Width 12.3 % (11.5-14.5); White Blood Cell Count 7.6 10^3/uL (4.8-10.8)
[2024-10-24 08:01] LABS: TSH 3.48 uIU/ml (0.47-4.68)
[2024-10-24 08:20] LABS: Vitamin B12 277 pg/ml (239-931)
--- NOTE | 2024-10-24 09:02 | CON.NEURO ---
Addendum entered and electronically signed by Yemi Mejia MD 10/24/24 15:28:
Studies reviewed.
I have personally examined the patient. I reviewed and agree with the SPECTROSCOPIST's Note.
My addenda:
Awake, alert, interactive. No acute distress.
Speech intact.
Follows 2-step requests w/o difficulty. No tremor.
Extra-ocular movements grossly intact.
Facial movements full and symmetric. Hearing intact to normal conversational volume.
Normal UE movements bilaterally.
Neck: full ROM.
Chest: no dyspnea
Heart: no JVD
Ext: (-) Clubbing, (-) Cyanosis, (-) Edema
IMPRESSIONS/RECOMMENDATIONS:
Abrupt onset of diplopia and lightheadedness
Not clear that this represents a flareup of multiple sclerosis with the exception of the possibility of a brainstem enhancing lesion in a patient who is becoming evidently noncompliant with initiation of medications to prevent exacerbation
Check MRI of brain for completeness with and without contrast
If there is evidence of an enhancing lesion, would provide high-dose steroids
Patient was advised to reconsider use of anti-MS medications as routine therapy
Start vitamin B12 replacement
Follow vitamin D level as low vitamin D in a patient with multiple sclerosis may be provocative of flareups
D/W patient
All questions answered.
Will continue to follow pending results.
Original Note:
Documented by User: Darcy Hopkins NP 10/24/24 12:08
Neuro Assessment/Plan
Assessment
This is a 64 yo female with a past medical history of HTN and hypothyroidism presented to [facility] on 10/23/2024 with dizziness and weakness following dental implants placed on 10/03/2024 on the left side.
CTA head and neck (10/11/2024): No significant vascular occlusion, aneurysm or dissection.
Brain MRI (11/23/2023):
1. Moderate demyelinating disease (MULTIPLE SCLEROSIS) in the cerebral hemispheres and right middle cerebellar peduncle which appears unchanged from 03/19/2023.
2. Mild cerebral and cerebellar volume loss.
Cervical MRI (11/23/2023):
Better seen on concurrent MRI of the brain, regions of increased T2 and STIR signal within the right middle cerebellar peduncle and within the medulla, likely representing areas of demyelination in this patient with a history of multiple sclerosis.
Evaluation of the cervical spine is limited because of motion artifact. Given this limitation, no convincing evidence for focal demyelinating lesion within the cervical spinal cord.
Changes of degenerative disc disease, greatest at C4-5. These findings appear stable from examination of March 19, 2023.
Thoracic MRI (11/23/2023):
No definite evidence for thoracic spinal cord signal intensity abnormality, with no convincing evidence for focal area of demyelination on today's exam.
No evidence for spinal cord compression or central canal stenosis.
Plan
Impressions:
I. brain lesions and symptomatology suspicious for demyelinating disease (Multiple Sclerosis), less likely acute disseminated encephalomyelitis (ADEM)
Plan:
-obtain brain and cervical MRI with and without to look for enhancing lesions
-pending imaging, may need to treat with high dose corticosteroids
-follow up with outpatient neurologist, Dr. Barbosa
-consider starting disease modifying therapy outpatient
-Vitamin B12 low at 277, start supplementation
-Vitamin D level low in the past at 26, new level pending
Consultation
Order
Date of Consultation: 10/24/24
Requesting Provider: hospitalist/ Dr. Marino
Reason for Consult: paresthesia
Subjective/Objective
Subjective Data
Date of Service: October 24, [address] Sofie Grover from 03/16/2024:
'Jaylene Cunningham is a 64 y.o. female with demyelinating disease who is here for follow up. She follows with Dr. Josh Barbosa neurology [facility], last seen 02/09/24 at which time the diagnosis was not certain, but included MS and ADEM. She preferred to defer
DMT given clinical and radiological stability since March 2022 following a urinary tract infection and influenza vaccine which produced abrupt onset of numerous demyelinating appearing lesions in the brain within a week of an otherwise
unremarkable MRI of the brain. She also had multiple neurologic symptoms at that time which improved with IV Solu-Medrol, and has not recurred since that time. She denies any new MS symptoms. She feels stable and does not wish to start DMT. Prior
history: Mar 13 she developed a strange sensation in her low back. She went to [facility] - and was found to be febrile, UTI treated with Zosyn. Did not feel well the entire week. She then developed the acute onset of binocular diplopia.
Went to [facility]. No clear diagnosis. Numbness BUEs and BLEs acute onset. Could not speak, nasal speech. Went to [facility] and was hospitalized and received 500 mg IV methylprednisolone twice daily for 5 days. Symptoms improved.
Resolved completely over a few days. Called a friend who is a physician and was told to see a neurologist. Saw Dr. Barbosa who brought up the possibility of steroids - he told her it could be ADEM. No confusion, no encephalopathy per . Saw "Clarita"Bruno for a consult who recommended Tysabri. JAY, MOG, AQP4 were negative. OCBs were negative. Denies fatigue, walks 3-4 miles a day. Very shaken by the diagnosis and needs more information. Mar 2021 she developed dizziness that was only 2 min in
duration - she went to the ER at [place] and MRI revealed 'one little spot'.'
She presented to [facility] on 10.23.2024 with dizziness and weakness following dental implants placed on 10/03/2024 on the left side. Symptoms began three days after the procedure, with dizziness and neck pain initially, and have evolved to include
numbness on the right side of the face. The patient also reports blurred vision particularly while attempting to drive. She reports numbness to hands and fingers bilaterally. Denies dropping things. The symptoms have progressively worsened over the
past two months. She currently follows with neurologist Dr. Barbosa from [facility]. The patient has a history of extensive MRI evaluations for over two years due to apparent reactions to a vaccine, with a working diagnosis
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 Of note, she had similar symptoms three years ago back in 2021 and received steroids with complete relief of symptoms. Current neurological
findings reveal stable sensation and strength, with cranial nerve assessment showing normal function. Prior imaging and labs from ER and outpatient visits have reportedly been normal. Upon arrival to ER NIHSS 0. Current labs unremarkable except for
low Vitamin B 12 level.
Objective Data
Vital Signs
Temp Pulse Resp BP Pulse Ox
97.9 F 66 16 168/77 98
10/24/24 07:05 10/24/24 07:05 10/24/24 07:05 10/24/24 07:05 10/24/24 07:05
Lab Results
10/24/24 06:40
Sodium 141 mmol/L (135-145) 10/23/24 19:12
Potassium 3.8 mmol/L (3.5-5.1) 10/23/24 19:12
BUN 16 mg/dl (7-17) 10/23/24 19:12
Glucose 164 mg/dl (70-99) H 10/23/24 19:12
Calcium 8.8 mg/dl (8.4-10.2) 10/23/24 19:12
Vitamin B12 277 pg/ml (239-931) 10/24/24 06:40
Patient Allergies
cephalexin monohydrate (From Keflex) Allergy (Unknown, Verified 10/23/24 17:32)
Unknown
CVA Assessment
Onset of Stroke Symptoms
Onset of symptoms known: Yes
Date of onset of symptoms: 10/07/24
NIH Stroke Score
Level of Consciousness: 0 - Alert
LOC Questions: 0-Answers both correctly
LOC Commands: 0-Performs both correctly
Best Horizontal Gaze: 0-Normal
Visual Meza: 0=Normal, no visual loss
Facial Palsy: 0=Normal, symmetrical
Motor - Right Arm: 0=No drift 10 seconds
Motor - Left Arm: 0=No drift 10 seconds
Motor - Right Le-No drift 5 seconds
Motor - Left Le-No drift 5 seconds
Limb Ataxia: 0-Absent
Sensation: 0-Normal
Best Language: 0-No aphasia
Dysarthria: 0-Normal
Extinction and Inattention: 0-No abnormality
NIH Total Score:: 0
Tenecteplase Contraindications
Reasons for NON-Tx with Thrombolytics ABSOLUTE Exclusions: Time-out of window
IAT Contraindications: NIHSS < 6 and >6 hrs from onset/last seen normal
Modified [place] Score (MRS)
-
Modified Jorge Scale (mRS): No symptoms
Score: 0
Review of Systems
-
History Source: Patient
Constitutional: No Symptoms
EENT: Blurry Vision
Respiratory: No Symptoms
Cardiac: No Symptoms
Abdomen/GI: No Symptoms
Genitourinary: No Symptoms
Musculoskeletal: No Symptoms
Skin: No Symptoms
Neuro: Dizzy and Numbness (mouth numbness)
Physical Exam
-
General: No Apparent Distress, Comfortable and Appears Stated Age
HEENT: Normocephalic, Atraumatic and Anicteric
Neck: Full Range of Motion
Respiratory: No Dyspnea
Cardiac: No JVD
GI: Non-distended
Skin: Unremarkable
Extremities: No Clubbing, No Cyanosis and No Edema
Psych: Intact Judgement/Insight
Extended Neurological Exam
Mood & Affect: Mood Unremarkable
Attention Span & Concentration: Awake, Alert, Interactive and No Difficulty with 2 Step Request
Memory: Unremarkable
Tremor: Hand Tremor Absent and Head Tremor Absent
Involuntary Movement: None
Speech: Quality Unremarkable, Quantity Unremarkable and Rate of Production Unremarkable
Cranial Nerve II: Left Eye: Pupillary Reactivity Unremarkable and Pupillary Size Unremarkable
Cranial Nerve II: Right Eye: Pupillary Reactivity Unremarkable and Pupillary Size Unremarkable
Cranial Nerves III, IV, : Extraocular Movement: Extraocular Movement Left (left gaze restricted)
Cranial Nerve VII: Facial Symmetry: Normal Facial Symmetry
Cranial Nerve VIII: Hearing: Unremarkable Hearing to Normal Conversational Volume
Cranial Nerves IX, X: Palate Movement: Palate Elevation Symmetric
Cranial Nerve XI: Shoulder Shrug: Unremarkable
Cranial Nerve XII: Tongue Protusion: Midline
Muscle Strength, Overall: Full Throughout
Pronator Drift: No Drift in Upper Extremities and No Drift in Lower Extremities
Deep Tendon Reflexes: Clonus (2 beats of clonus to left) and 3+ (lower extremities)
Cold Sensation: Unremarkable
Vibration Sensation: Unremarkable
Touch Sensation: Unremarkable
Coordination: [id number] Testing Unremarkable and Reaches for Objects without Difficulty
Data Reviewed
-
CT-A: Report Reviewed and Image Reviewed
MRI Head: Report Reviewed and Image Reviewed
MRI Cervical Spine: Report Reviewed and Image Reviewed
MRI Thoracic Spine: Report Reviewed and Image Reviewed
Labs: Report Reviewed
Reviewed with: Physician and Patient
Old Records: Summarized
Medications
-
Active Medications
Generic Name Dose Route Start Last Admin
Trade Name Freq PRN Reason Stop Dose Admin
Acetaminophen 650 mg 10/23/24 21:38
Acetaminophen 325 Mg Tablet PO 11/20/24 21:37
Q4HPRN PRN
mild pain/[place]/temp> 100.4F
Bisacodyl 10 mg 10/23/24 21:38
Bisacodyl 10 Mg Rectal Suppository RECTAL 11/20/24 21:37
[id number] PRN
constipation
Famotidine 20 mg 10/25/24 08:00
Famotidine 20 Mg Tablet PO 11/22/24 07:59
DAILY NARESH
Levothyroxine Sodium 75 mcg 10/25/24 06:00
Levothyroxine 75 Mcg Tablet PO 11/22/24 05:59
DAILY @ 0600 NARESH
Lorazepam 1 mg 10/24/24 07:48
Lorazepam 1 Mg Tablet PO 10/24/24 23:59
ONCE NARESH
Polyethylene Glycol 17 grams 10/23/24 21:38
Polyethylene Glycol Powder 17 Grams Packet PO 11/20/24 21:37
DAILYPRN PRN
constipation
Senna/Docusate Sodium 1 tablet 10/23/24 21:38
Docusate W/Senna (Shania-Colace) Tablet PO 11/20/24 21:37
BIDPRN PRN
constipation
Sodium Chloride 0 flush 10/23/24 22:00
Sodium Chloride 0.9% (Flush) Syringe IV 11/20/24 21:59
PER PROTOCOL NARESH
Home Medications
�Medication �Instructions �Recorded
ibuprofen 200 mg capsule 200 mg PO Q8H PRN fever or pain #1 03/20/22
cap
rabies vaccine, pcec (PF) 2.5 unit 2.5 unit IM ONCE #3 ea 12/29/23
IM susp (RabAvert (PF))
levothyroxine 0.75 mcg PO DAILY 10/24/24
Past History
Past History
ED Past Medical History: Hypothyroidism and Other (Back pain, sciatica, neck pain)
ED Past Surgical History: None
Family/Social History
Tobacco: Non-smoker
Alcohol: None
Drug: None
Personal:
Living: with family
Employment: Employed
Family History: Other (Noncontributory)

Documented by User: Yemi Mejia MD 10/24/24 15:17
CVA Assessment
NIH Stroke Score
NIH Total Score:: 0
Modified [place] Score (MRS)
-
Score: 0
--- NOTE | 2024-10-24 09:10 | W.PN.HOSP.TC ---
Today's Communication/Plan
-
f/w neurology recommendations
Assessment / Plan
Assessment / Plan
Physical Exam
General: Well Developed, Well Nourished and No Apparent Distress
HEENT: NormoCephalic, Moist mucous membranes and Atraumatic
Respiratory: Clear
Cardiac: S1/S2 and Regular Rhythm
GI: Soft, Non Tender, Non Distended
Musculoskeletal: No Clubbing, No Cyanosis and No Edema
Skin: No Rash
Neuro: Nonfocal motor deficits, AAOX3, she followed commands
Psych: calm
Subacute abnormal vision ( diplopia) and r facial paresthesias after L lower dental implants 10/04.
No significant vascular occlusion, aneurysm or dissection. per recent H & N CTA
Upon arrival to ER NIHSS 0
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
f/w neurology recommendations
Prior Brain MRI report of Moderate demyelinating disease (MULTIPLE SCLEROSIS) in the cerebral hemispheres and right middle cerebellar peduncle which appears unchanged from 03/19/2023.
- Brain MRI with contract for AM
Hypothyroidism
- continue Synthroid
HX diffuse hepatic steatosis
Diverticulosis
DVT Px: LMWH
Full code
Total time spent to see the patient, examine the patient, review data and lab result, discuss treatment plan with patient, nursing staff around 55 minutes
Anticipated Discharge: Within 24 hours
Subjective/Interval History
-
Date of Service: October 24, 2024
No sob
No chest pain
reports numbness in face, blurred vision
Objective Data
-
Labs:
Laboratory Results
10/24/24
06:40
WBC 7.6
Hgb 13.1
Hct 36.8 L
Plt Count 185
Sodium Pending
Potassium Pending
Chloride Pending
Carbon Dioxide Pending
BUN Pending
Creatinine Pending
Glucose Pending
Calcium Pending
Vital Signs:
Vital Signs
Temp Pulse Resp BP Pulse Ox
97.9 F 66 16 168/77 98
10/24/24 07:05 10/24/24 07:05 10/24/24 07:05 10/24/24 07:05 10/24/24 07:05
--- NOTE | 2024-10-24 09:38 | PTCARENOTE ---
Pt accused staff of taking her own vitamin d tablet bottle. Bottle was found in pt's belonging bag. Pt insisted on taking her own supplement, med was added to home med list. Dr. Dai aware that med list was updated and that pr took her own dose
this morning.
[2024-10-24] MEDS: VITAMIN D3 (cholecalciferol) PO (10:07)
--- NOTE | 2024-10-24 12:31 | CM ---
Met with patient to obtain information for assessment. Patient's spouse was at bedside. She stated that she lives with him in a two story house with 4 steps to enter. She was independent with all dressing, bathing, ADLs, and self care. 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 She drives and can transport herself to her appointments and do her own shopping. She denied any DME in her home. She has never had VN services. She has not been to a SNF.
Patient has a prescription plan and uses, [facility] in [place] for all of her medications.
Her PCP is, Adolfo Sigala.
Plan: Case management will continue to follow and assist with discharge planning. Most likely patient will not have needs. OBS for provided, reviewed and signed.
[2024-10-24 14:48] LABS: Blood Urea Nitrogen 15 mg/dl (7-17); Calcium 9.4 mg/dl (8.4-10.2); Carbon Dioxide 17 mmol/L (22-30); Chloride 118 mmol/L (98-107); Estimated Creatinine Clearance 88 ml/min; Glucose 125 mg/dl (70-99); Potassium 4.4 mmol/L (3.5-5.1); Sodium 146 mmol/L (135-145); eGFR > 60.00
[2024-10-24 15:00] VITALS: BP 160/63
[2024-10-24] MEDS: ATIVAN 1 MG PO (17:30)
[2024-10-24 23:08] VITALS: BP 166/71
[2024-10-25 03:17] VITALS: BP 141/57
[2024-10-25] MEDS: SYNTHROID 75 MCG PO (05:57)
[2024-10-25] MEDS: PEPCID 20 MG PO (06:00)
[2024-10-25] MEDS: VITAMIN B-12 1000 MCG PO (07:46)
[2024-10-25] MEDS: VITAMIN D3 (cholecalciferol) 50 MCG PO (07:46)
[2024-10-25 07:56] VITALS: BP 164/69
[2024-10-25 08:25] LABS: Vitamin D, 25-OH*** 35.5 ng/mL (30-80)
--- NOTE | 2024-10-25 08:37 | W.PN.NEURO.1 ---
Addendum entered and electronically signed by Yemi Mejia MD 10/25/24 18:19:
Studies reviewed.
I have personally examined the patient. I reviewed and agree with the PRINTING GRAY CLOTH TENDER's Note.
My addenda:
Awake, alert, interactive. No acute distress.
Speech intact. Unclear if patient has poor recall as she asked repetitive questions
Extra-ocular movements with OS esophoria.
Facial movements full and symmetric. Hearing intact to normal conversational volume.
Normal UE movements bilaterally.
Neck: full ROM.
Chest: no dyspnea
Heart: no JVD
Ext: (-) Clubbing, (-) Cyanosis, (-) Edema
IMPRESSIONS/RECOMMENDATIONS:
Abrupt onset of diplopia, lightheadedness; in a patient with previously diagnosed CRUSHER SETTER demyelinating disease, now demonstrating by MRI of brain evidence of enhancing lesions suggestive of exacerbation of multiple sclerosis
Initiate methylprednisolone most likely needed for 5-day course, careful monitoring for hypertension and hyperglycemia
Initiate vitamin B12 replacement
Borderline low vitamin D, increase vitamin D supplementation
Occupational therapy due to the patient's ongoing diplopia
D/W patient / family
All questions answered.
Will continue to follow patient.
Original Note:
Today's Communication / Plan
-
Plan:
-start Methylprednisolone 1g x 3 days, if no improvement then continue for 5 days
-follow up with outpatient neurologist, Dr. Barbosa or Dr. Grover
-needs to start disease modifying therapy outpatient
-Vitamin B12 low at 277, start supplementation
-Vitamin D level 35.5, increase D3
Neuro Assessment/Plan
Assessment
This is a 64 yo female with a past medical history of HTN and hypothyroidism presented to [facility] on 10/23/2024 with dizziness and weakness following dental implants placed on 10/03/2024 on the left side with most recent brain MRI showing active
demyelinating lesions regarding her multiple sclerosis.
Brain MRI (10/24/2024):
Interval progression of white matter lesions in keeping with demyelinating lesions of multiple sclerosis, compared to prior exam 11/23/2023. There is postcontrast enhancement involving several of these lesions in the bilateral centrum semiovale
regions, suggesting active disease.
No MR evidence for acute intracranial infarct or hemorrhage.
CTA head and neck (10/11/2024): No significant vascular occlusion, aneurysm or dissection.
Brain MRI (11/23/2023):
1. Moderate demyelinating disease (MULTIPLE SCLEROSIS) in the cerebral hemispheres and right middle cerebellar peduncle which appears unchanged from 03/19/2023.
2. Mild cerebral and cerebellar volume loss.
Cervical MRI (11/23/2023):
Better seen on concurrent MRI of the brain, regions of increased T2 and STIR signal within the right middle cerebellar peduncle and within the medulla, likely representing areas of demyelination in this patient with a history of multiple sclerosis.
Evaluation of the cervical spine is limited because of motion artifact. Given this limitation, no convincing evidence for focal demyelinating lesion within the cervical spinal cord.
Changes of degenerative disc disease, greatest at C4-5. These findings appear stable from examination of March 19, 2023.
Thoracic MRI (11/23/2023):
No definite evidence for thoracic spinal cord signal intensity abnormality, with no convincing evidence for focal area of demyelination on today's exam.
No evidence for spinal cord compression or central canal stenosis.
Plan
Impressions:
I. Abrupt onset of diplopia and lightheadedness in the setting of multiple sclerosis exacerbation as evidence by brain MRI with new enhancing lesions
Plan:
-start Methylprednisolone 1g x 3 days, if no improvement then continue for 5 days
-follow up with outpatient neurologist, Dr. Barbosa or Dr. Grover
-needs to start disease modifying therapy outpatient
-Vitamin B12 low at 277, start supplementation
-Vitamin D level 35.5, increase D3
Subjective/Objective
Subjective Data
Date of Service: October 25, 2024
Patient still having numbness to face. No new neurologic complaints.
Objective Data
Vital Signs
Temp Pulse Resp BP Pulse Ox
97.7 F 67 18 164/69 95
10/25/24 07:56 10/25/24 07:56 10/25/24 07:56 10/25/24 07:56 10/25/24 07:56
Lab Results
10/24/24 06:40
10/24/24 06:40
Sodium 146 mmol/L (135-145) H 10/24/24 06:40
Potassium 4.4 mmol/L (3.5-5.1) 10/24/24 06:40
BUN 15 mg/dl (7-17) 10/24/24 06:40
Glucose 125 mg/dl (70-99) H 10/24/24 06:40
Calcium 9.4 mg/dl (8.4-10.2) 10/24/24 06:40
Vitamin B12 277 pg/ml (239-931) 10/24/24 06:40
Patient Allergies
cephalexin monohydrate (From Ventrix) Allergy (Unknown, Verified 10/23/24 17:32)
Unknown
Review of Systems
-
History Source: Patient
Constitutional: No Symptoms
EENT: Blurry Vision
Respiratory: No Symptoms
Cardiac: No Symptoms
Abdomen/GI: No Symptoms
Genitourinary: No Symptoms
Musculoskeletal: No Symptoms
Skin: No Symptoms
Neuro: Dizzy and Numbness (mouth numbness)
Physical Exam
-
General: No Apparent Distress, Comfortable and Appears Stated Age
HEENT: Normocephalic, Atraumatic and Anicteric
Neck: Full Range of Motion
Respiratory: No Dyspnea
Cardiac: No JVD
GI: Non-distended
Skin: Unremarkable
Extremities: No Clubbing, No Cyanosis and No Edema
Psych: Unremarkable
Extended Neurological Exam
Mood & Affect: Mood Unremarkable
Attention Span & Concentration: Awake, Alert, Interactive and No Difficulty with 2 Step Request
Memory: Unremarkable
Tremor: Hand Tremor Absent and Head Tremor Absent
Involuntary Movement: None
Speech: Quality Unremarkable, Quantity Unremarkable and Rate of Production Unremarkable
Cranial Nerve II: Left Eye: Pupillary Reactivity Unremarkable and Pupillary Size Unremarkable
Cranial Nerve II: Right Eye: Pupillary Reactivity Unremarkable and Pupillary Size Unremarkable
Cranial Nerves III, IV, : Extraocular Movement: Extraocular Movement Left (left gaze restricted)
Cranial Nerve VII: Facial Symmetry: Normal Facial Symmetry
Cranial Nerve VIII: Hearing: Unremarkable Hearing to Normal Conversational Volume
Muscle Strength, Overall: Full Throughout
Pronator Drift: No Drift in Upper Extremities and No Drift in Lower Extremities
Deep Tendon Reflexes: Clonus (2 beats of clonus to left) and 3+ (lower extremities)
Cold Sensation: Unremarkable
Vibration Sensation: Unremarkable
Touch Sensation: Unremarkable
Coordination: Reaches for Objects without Difficulty
Data Reviewed
-
MRI Head: Report Reviewed and Image Reviewed
Labs: Report Reviewed
Reviewed with: Physician, Nurse, Patient and Family
Old Records: Summarized
[2024-10-25] MEDS: SOLU-MEDROL 258 MG IV (09:08)
--- NOTE | 2024-10-25 09:09 | W.PN.HOSP.TC ---
Today's Communication/Plan
-
IV steroid
ISS and Lantus
PRN hyydralazine
Assessment / Plan
Assessment / Plan
Physical Exam
General: Well Developed, Well Nourished and No Apparent Distress
HEENT: NormoCephalic, Moist mucous membranes and Atraumatic
Respiratory: Clear
Cardiac: S1/S2 and Regular Rhythm
GI: Soft, Non Tender, Non Distended
Musculoskeletal: No Clubbing, No Cyanosis and No Edema
Skin: No Rash
Neuro: Nonfocal motor deficits, AAOX3, she followed commands
Psych: calm
# Acute MS exacerbation
d/w neurology, recommending to give 1 gm of iV Methylprednisolone for 3-5 days depending on clinical response
d/w pt and her at bed side, agreed to TX and understood potential side effects of high dose steroid
Patient follows with Dr Barbosa at [facility] and reported that she knew about lesions but neurologist was not certain about MS diagnosis and possible related to previous vaccine. patient wanted to discuss with Dr barbosa, will give her disk. Also I
put a call out to him.
Appreciate neurology recommendations
# pre diabetes
Expect high blood glucose related to steroid
Will do ISS and add Lantus
Hypothyroidism
- continue Synthroid
HX diffuse hepatic steatosis
Diverticulosis
DVT Px: LMWH
Full code
Total time spent to see the patient, examine the patient, review data and lab result, discuss treatment plan with patient, , neurologist, nursing staff around 59 minutes
Anticipated Discharge: > 48 hours
Subjective/Interval History
-
Date of Service: October 25, 2024
Same blurred vision
No chest pain
No sob
No abdominal pain
Objective Data
-
Vital Signs:
Vital Signs
Temp Pulse Resp BP Pulse Ox
97.7 F 67 18 164/69 95
10/25/24 07:56 10/25/24 07:56 10/25/24 07:56 10/25/24 07:56 10/25/24 07:56
I&O
10/24/24 10/25/24 10/26/24
06:59 06:59 06:59
Intake Total 1200 / 1200
Balance 1200 / 1200
[2024-10-25 12:09] LABS: Glucose - Point of Care 148 mg/dl (70-99)
[2024-10-25] MEDS: NOVOLOG FLEXPEN-MODERATE RESISTANCE SC (12:16)
[2024-10-25 13:26] VITALS: BP 169/76
--- NOTE | 2024-10-25 13:36 | PTCARENOTE ---
BP rechecked- 169/76. Offered Hydralazine 5mg PO PRN. Patient refused to take medication.
[2024-10-25 16:01] VITALS: BP 172/69
--- NOTE | 2024-10-25 16:35 | CM ---
Spoke with pt informed her she was changed to inpatient.
Offered VN she declined need.
[place].
PLAN Home no needs
[2024-10-25 16:40] LABS: Glucose - Point of Care 332 mg/dl (70-99)
[2024-10-25] MEDS: NOVOLOG FLEXPEN-MODERATE RESISTANCE 7 UNITS SC (16:42)
[2024-10-25 21:12] LABS: Glucose - Point of Care 242 mg/dl (70-99)
[2024-10-25] MEDS: LANTUS 0.15 UNITS SC (21:32)
[2024-10-25 23:13] VITALS: BP 169/74
[2024-10-25] MEDS: APRESOLINE 5 MG PO (23:20)
[2024-10-26] VITALS (7 sets, daily range): BP systolic 136–162; BP diastolic 51–83; PULSE 90
[2024-10-26 02:48] LABS: Glucose - Point of Care 199 mg/dl (70-99)
[2024-10-26] MEDS: SYNTHROID 75 MCG PO (05:04)
[2024-10-26] MEDS: PEPCID 20 MG PO ×2 (05:11→20:10)
[2024-10-26] MEDS: PEPCID PO (05:33)
[2024-10-26 07:35] LABS: Glucose - Point of Care 182 mg/dl (70-99)
[2024-10-26 07:38] LABS: Hematocrit 40.2 % (37.0-47.0); Hemoglobin 14.4 g/dL (12.0-16.0); Mean Corp Hgb Conc. 35.8 g/dL (33.0-37.0); Mean Corpuscular Hgb 31.8 pg (27.0-31.0); Mean Corpuscular Volume 88.7 fL (81.0-99.0); Mean Platelet Volume 11.5 fL (7.4-10.4); Platelet Count 204 10^3/uL (130-400); Red Blood Cell Count 4.53 10^6/uL (4.20-5.40); Red Cell Dist. Width 12.1 % (11.5-14.5); White Blood Cell Count 10.8 10^3/uL (4.8-10.8)
[2024-10-26 08:09] LABS: Blood Urea Nitrogen 17 mg/dl (7-17); Calcium 9.5 mg/dl (8.4-10.2); Carbon Dioxide 20 mmol/L (22-30); Chloride 111 mmol/L (98-107); Estimated Creatinine Clearance 88 ml/min; Glucose 191 mg/dl (70-99); Potassium 4.4 mmol/L (3.5-5.1); Sodium 140 mmol/L (135-145); eGFR > 60.00
[2024-10-26] MEDS: NORVASC PO (08:41)
[2024-10-26] MEDS: LANTUS 0.15 UNITS SC ×2 (08:41→20:10)
[2024-10-26] MEDS: SOLU-MEDROL 258 MG IV (08:41)
[2024-10-26] MEDS: NOVOLOG FLEXPEN-MODERATE RESISTANCE 1 UNITS SC (08:41)
[2024-10-26] MEDS: VITAMIN B-12 1000 MCG PO (08:41)
[2024-10-26] MEDS: VITAMIN D3 (cholecalciferol) 125 MCG PO (08:41)
[2024-10-26] MEDS: NOVOLOG FLEXPEN 10 UNITS SC ×3 (08:42→16:39)
[2024-10-26 08:49] LABS: Glycohemoglobin (HgbA1c) 6.5 % (4.0-5.6)
[2024-10-26] MEDS: NORVASC 5 MG PO (08:56)
--- NOTE | 2024-10-26 09:30 | W.PN.HOSP.TC ---
Today's Communication/Plan
-
Insulin adjustment
Amlodipine
PRN Hydralazine
IV steroid
I updated OP neurologist
Assessment / Plan
Assessment / Plan
Physical Exam
General: Well Developed, Well Nourished and No Apparent Distress
HEENT: NormoCephalic, Moist mucous membranes and Atraumatic
Respiratory: Clear
Cardiac: S1/S2 and Regular Rhythm
GI: Soft, Non Tender, Non Distended
Musculoskeletal: No Clubbing, No Cyanosis and No Edema
Skin: No Rash
Neuro: Nonfocal motor deficits, AAOX3, she followed commands
Psych: calm
# Acute MS exacerbation
d/w neurology, recommending to give 1 gm of iV Methylprednisolone for 3-5 days depending on clinical response
d/w pt and her at bed side, agreed to TX and understood potential side effects of high dose steroid
Patient follows with Dr Barbosa at [place], spoke to him on the phone and faxed MRI result, he agreed to IV steroid treatment.
Appreciate neurology recommendations
# pre diabetes
Expect high blood glucose related to steroid
c/w ISS
Increased Lantus, added pre-meal insulin
# High Blood pressure
Could be undiagnosed primary HTN, she refused treatment but advised to control BP to avoid neurological complications as stroke/ bleeding, she agreed, will do Amlodipine.
PRN hydralazine
Hypothyroidism
- continue Synthroid
HX diffuse hepatic steatosis
Diverticulosis
DVT Px: LMWH
Full code
Total time spent to see the patient, examine the patient, review data and lab result, discuss treatment plan with patient, neurologist, nursing staff around 57 minutes
Anticipated Discharge: > 48 hours
Subjective/Interval History
-
Date of Service: October 26, 2024
mild improvement in blurred vision
Objective Data
-
Labs:
Laboratory Results
10/26/24
05:59
WBC 10.8
Hgb 14.4
Hct 40.2
Plt Count 204
Sodium 140
Potassium 4.4
Chloride 111 H
Carbon Dioxide 20 L
BUN 17
Creatinine 0.7
Glucose 191 H
Calcium 9.5
Vital Signs:
Vital Signs
Temp Pulse Resp BP Pulse Ox
98.4 F 68 16 140/67 98
10/26/24 07:00 10/26/24 07:00 10/26/24 07:00 10/26/24 07:00 10/26/24 08:10
I&O
10/25/24 10/26/24 10/27/24
06:59 06:59 06:59
Intake Total 1200 / 1200 1698 / 1698
Balance 1200 / 1200 1698 / 1698
[2024-10-26 11:49] LABS: Glucose - Point of Care 250 mg/dl (70-99)
[2024-10-26] MEDS: NOVOLOG FLEXPEN-MODERATE RESISTANCE 5 UNITS SC (12:10)
--- NOTE | 2024-10-26 13:15 | CM ---
Maintained on IV steroids.
Adjusting insulin as needed.
Spoke with pt informed she is aware she is inpatient.
Offered VN she declined need.
Her will drive her home [place].
PLAN Home no needs
--- NOTE | 2024-10-26 15:27 | W.PN.NEURO.1 ---
Today's Communication / Plan
-
Continue methylprednisolone 1g IV x 3 days, if no improvement then continue for 5 days
needs to start disease modifying therapy outpatient
Neuro Assessment/Plan
Assessment
This is a 64 yo female with a past medical history of HTN and hypothyroidism presented to [facility] on 10/23/2024 with dizziness and weakness following dental implants placed on 10/03/2024 on the left side with most recent brain MRI showing active
demyelinating lesions regarding her multiple sclerosis.
Brain MRI (10/24/2024):
Interval progression of white matter lesions in keeping with demyelinating lesions of multiple sclerosis, compared to prior exam 11/23/2023. There is postcontrast enhancement involving several of these lesions in the bilateral centrum semiovale
regions, suggesting active disease.
No MR evidence for acute intracranial infarct or hemorrhage.
CTA head and neck (10/11/2024): No significant vascular occlusion, aneurysm or dissection.
Brain MRI (11/23/2023):
1. Moderate demyelinating disease (MULTIPLE SCLEROSIS) in the cerebral hemispheres and right middle cerebellar peduncle which appears unchanged from 03/19/2023.
2. Mild cerebral and cerebellar volume loss.
Cervical MRI (11/23/2023):
Better seen on concurrent MRI of the brain, regions of increased T2 and STIR signal within the right middle cerebellar peduncle and within the medulla, likely representing areas of demyelination in this patient with a history of multiple sclerosis.
Evaluation of the cervical spine is limited because of motion artifact. Given this limitation, no convincing evidence for focal demyelinating lesion within the cervical spinal cord.
Changes of degenerative disc disease, greatest at C4-5. These findings appear stable from examination of March 19, 2023.
Thoracic MRI (11/23/2023):
No definite evidence for thoracic spinal cord signal intensity abnormality, with no convincing evidence for focal area of demyelination on today's exam.
No evidence for spinal cord compression or central canal stenosis.
Abrupt onset of diplopia and lightheadedness in the setting of multiple sclerosis exacerbation as evidence by brain MRI with new enhancing lesions
Plan
Continue methylprednisolone 1g IV x 3 days, if no improvement then continue for 5 days
needs to start disease modifying therapy outpatient
-Vitamin B12 low at 277, started supplementation
-Vitamin D level 35.5, increased D3
Will follow
Subjective/Objective
Subjective Data
Date of Service: October 26, 2024
Patient reports that skin sensation changes have totally resolved although she is unclear about when that change took place.
Objective Data
Vital Signs
Temp Pulse Resp BP Pulse Ox
36.9 C 68 16 140/67 98
10/26/24 07:00 10/26/24 07:00 10/26/24 07:00 10/26/24 07:00 10/26/24 08:10
Lab Results
10/26/24 05:59
10/26/24 05:59
Sodium 140 mmol/L (135-145) 10/26/24 05:59
Potassium 4.4 mmol/L (3.5-5.1) 10/26/24 05:59
BUN 17 mg/dl (7-17) 10/26/24 05:59
Glucose 191 mg/dl (70-99) H 10/26/24 05:59
Calcium 9.5 mg/dl (8.4-10.2) 10/26/24 05:59
Vitamin B12 277 pg/ml (239-931) 10/24/24 06:40
Patient Allergies
cephalexin monohydrate (From Keflex) Allergy (Unknown, Verified 10/23/24 17:32)
Unknown
Review of Systems
-
History Source: Patient
All other systems: Reviewed and negative
EENT: Blurry Vision
Musculoskeletal: No Symptoms
Skin: No Symptoms
Neuro: Dizzy; Negative Numbness (mouth numbness)
Physical Exam
-
General: No Apparent Distress and Appears Stated Age
Eyes: Round OU, [place] Conjunctivae and No Ptosis
HEENT: Anicteric and Moist Mucous Membranes
Neck: Full Range of Motion
Respiratory: No Dyspnea
Cardiac: No JVD
GI: Non-distended
Skin: Unremarkable
Extremities: No Clubbing, No Cyanosis and No Edema
Psych: Negative Intact Judgement/Insight
Extended Neurological Exam
Mood & Affect: Mood Unremarkable and Affect Unremarkable
Attention Span & Concentration: Awake, Alert, Interactive and No Difficulty with 2 Step Request
Memory: Unremarkable
Tremor: Hand Tremor Absent and Head Tremor Absent
Speech: Quality Unremarkable and Quantity Unremarkable
Cranial Nerve II: Left Eye: Pupillary Size Unremarkable and Visual Meza Grossly Intact
Cranial Nerve II: Right Eye: Pupillary Size Unremarkable and Visual Meza Grossly Intact
Cranial Nerves III, IV, : Extraocular Movement: Extraocular Movement Full in all Directions and Other (1+ OS esophoria)
Cranial Nerve VII: Facial Symmetry: Normal Facial Symmetry
Cranial Nerve VIII: Hearing: Unremarkable Hearing to Normal Conversational Volume
Cranial Nerve XI: Shoulder Shrug: Unremarkable
Muscle Bulk & Tone: Bulk Unremarkable and Tone Unremarkable
Pronator Drift: No Drift in Upper Extremities
Touch Sensation: Unremarkable
Coordination: [id number]-[id number] Testing Unremarkable
Data Reviewed
-
Labs: Report Reviewed
Reviewed with: Nurse, Nurse Practioner and Patient
Old Records: Summarized
[2024-10-26 16:38] LABS: Glucose - Point of Care 339 mg/dl (70-99)
[2024-10-26] MEDS: NOVOLOG FLEXPEN-MODERATE RESISTANCE 7 UNITS SC (16:39)
[2024-10-26 20:11] LABS: Glucose - Point of Care 279 mg/dl (70-99)
[2024-10-27 03:32] LABS: Glucose - Point of Care 164 mg/dl (70-99)
[2024-10-27] MEDS: SYNTHROID 75 MCG PO (05:16)
[2024-10-27] MEDS: PEPCID 20 MG PO ×2 (05:17→19:25)
[2024-10-27 07:00] VITALS: BP 144/61
[2024-10-27 07:26] LABS: Glucose - Point of Care 169 mg/dl (70-99)
[2024-10-27] MEDS: LANTUS 0.15 UNITS SC ×2 (07:52→21:15)
[2024-10-27] MEDS: SOLU-MEDROL 258 MG IV (07:53)
[2024-10-27] MEDS: NOVOLOG FLEXPEN-MODERATE RESISTANCE 1 UNITS SC (07:54)
[2024-10-27] MEDS: NORVASC 5 MG PO (07:55)
[2024-10-27] MEDS: VITAMIN D3 (cholecalciferol) 125 MCG PO (07:55)
[2024-10-27] MEDS: VITAMIN B-12 1000 MCG PO (07:55)
[2024-10-27] MEDS: NOVOLOG FLEXPEN 10 UNITS SC ×3 (07:58→16:54)
--- NOTE | 2024-10-27 09:15 | W.PN.NEURO.1 ---
Today's Communication / Plan
-
Continue methylprednisolone 1g IV for 5 doses, has received 3 doses
Neuro Assessment/Plan
Assessment
This is a 64 yo female with a past medical history of HTN and hypothyroidism presented to [facility] on 10/23/2024 with dizziness and weakness following dental implants placed on 10/03/2024 on the left side with most recent brain MRI showing active
demyelinating lesions regarding her multiple sclerosis.
Brain MRI (10/24/2024):
Interval progression of white matter lesions in keeping with demyelinating lesions of multiple sclerosis, compared to prior exam 11/23/2023. There is postcontrast enhancement involving several of these lesions in the bilateral centrum semiovale
regions, suggesting active disease.
No MR evidence for acute intracranial infarct or hemorrhage.
CTA head and neck (10/11/2024): No significant vascular occlusion, aneurysm or dissection.
Brain MRI (11/23/2023):
1. Moderate demyelinating disease (MULTIPLE SCLEROSIS) in the cerebral hemispheres and right middle cerebellar peduncle which appears unchanged from 03/19/2023.
2. Mild cerebral and cerebellar volume loss.
Cervical MRI (11/23/2023):
Better seen on concurrent MRI of the brain, regions of increased T2 and STIR signal within the right middle cerebellar peduncle and within the medulla, likely representing areas of demyelination in this patient with a history of multiple sclerosis.
Evaluation of the cervical spine is limited because of motion artifact. Given this limitation, no convincing evidence for focal demyelinating lesion within the cervical spinal cord.
Changes of degenerative disc disease, greatest at C4-5. These findings appear stable from examination of March 19, 2023.
Thoracic MRI (11/23/2023):
No definite evidence for thoracic spinal cord signal intensity abnormality, with no convincing evidence for focal area of demyelination on today's exam.
No evidence for spinal cord compression or central canal stenosis.
Abrupt onset of diplopia and lightheadedness in the setting of multiple sclerosis exacerbation as evidence by brain MRI with new enhancing lesions
Plan
Continue methylprednisolone 1g IV for 5 doses, has received 3 doses
needs to start disease modifying therapy outpatient
Vitamin B12 low at 277, started supplementation
Vitamin D level 35.5, increased D3
Will follow
Subjective/Objective
Subjective Data
Date of Service: October 27, 2024
Minimal improvement in double vision according to the patient
Objective Data
Vital Signs
Temp Pulse Resp BP Pulse Ox
36.4 C 50 16 143/79 98
10/27/24 07:00 10/27/24 07:00 10/27/24 07:00 10/27/24 07:55 10/27/24 07:00
Lab Results
10/26/24 05:59
10/26/24 05:59
Sodium 140 mmol/L (135-145) 10/26/24 05:59
Potassium 4.4 mmol/L (3.5-5.1) 10/26/24 05:59
BUN 17 mg/dl (7-17) 10/26/24 05:59
Glucose 191 mg/dl (70-99) H 10/26/24 05:59
Calcium 9.5 mg/dl (8.4-10.2) 10/26/24 05:59
Vitamin B12 277 pg/ml (239-931) 10/24/24 06:40
Patient Allergies
cephalexin monohydrate (From KeZendrive) Allergy (Unknown, Verified 10/23/24 17:32)
Unknown
Review of Systems
-
History Source: Patient
All other systems: Reviewed and negative
EENT: Blurry Vision
Musculoskeletal: No Symptoms
Skin: No Symptoms
Neuro: Negative Numbness (mouth numbness)
Physical Exam
-
General: No Apparent Distress, Obese and Appears Stated Age
Eyes: Round OU, [place] Conjunctivae and No Ptosis
HEENT: Anicteric and Moist Mucous Membranes
Neck: Full Range of Motion
Respiratory: No Dyspnea
Cardiac: No JVD
GI: Non-distended
Skin: Unremarkable
Extremities: No Clubbing, No Cyanosis and No Edema
Psych: Negative Intact Judgement/Insight
Extended Neurological Exam
Mood & Affect: Negative Affect Unremarkable (Irritable)
Attention Span & Concentration: Awake, Alert and Interactive
Memory: Reduced (For the number of treatments that she is already received)
Tremor: Hand Tremor Absent and Head Tremor Absent
Speech: Quality Unremarkable and Quantity Unremarkable
Cranial Nerve II: Left Eye: Pupillary Size Unremarkable and Visual Meza Grossly Intact
Cranial Nerve II: Right Eye: Pupillary Size Unremarkable and Visual Meza Grossly Intact
Cranial Nerves III, IV, : Extraocular Movement: Extraocular Movement Full in all Directions and Other (1+ OS esophoria)
Cranial Nerve VII: Facial Symmetry: Normal Facial Symmetry
Cranial Nerve VIII: Hearing: Unremarkable Hearing to Normal Conversational Volume
Cranial Nerve XI: Shoulder Shrug: Unremarkable
Muscle Bulk & Tone: Bulk Unremarkable and Tone Unremarkable
Touch Sensation: Unremarkable
Coordination: Reaches for Objects without Difficulty
Data Reviewed
-
Labs: Report Reviewed
Reviewed with: Patient
Old Records: Summarized
Past History
Past History
ED Past Medical History: Hypothyroidism and Other (Back pain, sciatica, neck pain, multiple sclerosis)
ED Past Surgical History: None
Social History
Tobacco: Non-smoker
Alcohol: None
Drug: None
Personal:
Living: with family
Employment: Employed
Family History
Family History: Other (Noncontributory)
Medications
-
Medications:
Generic Name Dose Route Start Last Admin
Trade Name Freq PRN Reason Stop Dose Admin
Acetaminophen 650 mg 10/23/24 21:38
Acetaminophen 325 Mg Tablet PO 11/20/24 21:37
Q4HPRN PRN
mild pain/[place]/temp> 100.4F
Amlodipine Besylate 5 mg 10/26/24 08:00 10/27/24 07:55
Amlodipine 5 Mg Tablet PO 11/23/24 07:59 5 mg
DAILY NARESH Administration
Bisacodyl 10 mg 10/23/24 21:38
Bisacodyl 10 Mg Rectal Suppository RECTAL 11/20/24 21:37
[id number] PRN
constipation
Cholecalciferol 125 mcg 10/26/24 08:00 10/27/24 07:55
Cholecalciferol (Vitamin D3) 125 Mcg Tablet (5,000 Units) PO 11/23/24 07:59 125 mcg
DAILY NARESH Administration
Cyanocobalamin 1,000 mcg 10/25/24 08:00 10/27/24 07:55
Cyanocobalamin 1,000 Mcg Tablet PO 11/22/24 07:59 1,000 mcg
DAILY NARESH Administration
Dextrose 12.5 grams 10/25/24 10:04
Dextrose 50% (0.5 Grams/Ml) 50 Ml Syringe IV 11/22/24 10:03
[id number] PRN
hypoglycemia
Protocol
Famotidine 20 mg 10/26/24 06:00 10/27/24 05:17
Famotidine 20 Mg Tablet PO 11/23/24 05:59 20 mg
BID@0600,2000 NARESH Administration
Glucagon 1 mg 10/25/24 10:04
Glucagon 1 Mg Vial IM 11/22/24 10:03
PRN PRN
hypoglycemia
Protocol
Hydralazine HCl 5 mg 10/25/24 10:04 10/25/24 23:20
Hydralazine 10 Mg Tablet PO 11/22/24 10:03 5 mg
TIDPRN PRN Administration
sbp more than 155
Methylprednisolone Sodium 258 mls @ 258 mls/hr 10/25/24 08:00 10/27/24 07:53
Succinate 1,000 mg/ Sodium IV 10/29/24 08:59 258 mls
Chloride Q24H NARESH Administration
Insulin Glargine 15 units/ 0.15 mls @ 0 mls/hr 10/26/24 08:00 10/27/24 07:52
Device SC 11/23/24 07:59 0.15 mls
BID NARESH Administration
As Directed
Insulin Aspart 0 units 10/25/24 11:30 10/27/24 07:54
Insulin Aspart Moderate Resistance 300 Units/3 Ml Pen.Injctr SC 11/22/24 11:29 1 units
AC NARESH Administration
Protocol
Insulin Aspart 10 units 10/26/24 07:30 10/27/24 07:58
Insulin Aspart (Novolog) 100 Units/Ml 3 Ml Flexpen SC 11/23/24 07:29 10 units
AC NARESH Administration
Levothyroxine Sodium 75 mcg 10/25/24 06:00 10/27/24 05:16
Levothyroxine 75 Mcg Tablet PO 11/22/24 05:59 75 mcg
DAILY @ 0600 NARESH Administration
Lorazepam 0.5 mg 10/26/24 10:30
Lorazepam 0.5 Mg Tablet PO 11/23/24 10:29
Q8HPRN PRN
anxiety,insomnia
Polyethylene Glycol 17 grams 10/23/24 21:38
Polyethylene Glycol Powder 17 Grams Packet PO 11/20/24 21:37
DAILYPRN PRN
constipation
Senna/Docusate Sodium 1 tablet 10/23/24 21:38
Docusate W/Senna (Shania-Colace) Tablet PO 11/20/24 21:37
BIDPRN PRN
constipation
Sodium Chloride 0 flush 10/23/24 22:00
Sodium Chloride 0.9% (Flush) Syringe IV 11/20/24 21:59
PER PROTOCOL NARESH
--- NOTE | 2024-10-27 09:35 | CM ---
Maintained on IV steroids course.
Adjusting insulin as needed.
Pt is inpatient Patient notified.
Offered VN she declined need.
[place]
PLAN Home no anticipated needs
--- NOTE | 2024-10-27 10:49 | W.PN.HOSP.TC ---
Today's Communication/Plan
-
IV steroid
Assessment / Plan
Assessment / Plan
Physical Exam
General: Well Developed, Well Nourished and No Apparent Distress
HEENT: NormoCephalic, Moist mucous membranes and Atraumatic
Respiratory: Clear
Cardiac: S1/S2 and Regular Rhythm
GI: Soft, Non Tender, Non Distended
Musculoskeletal: No Clubbing, No Cyanosis and No Edema
Skin: No Rash
Neuro: Nonfocal motor deficits, AAOX3, she followed commands
Psych: calm
# Acute MS exacerbation
d/w neurology, recommending to give 1 gm of iV Methylprednisolone for 3-5 days depending on clinical response
d/w pt and her at bed side, agreed to TX and understood potential side effects of high dose steroid
Patient follows with Dr Barbosa at [place], spoke to him on the phone and faxed MRI result, he agreed to IV steroid treatment.
Appreciate neurology recommendations
# pre diabetes
Expect high blood glucose related to steroid
c/w ISS
Increased Lantus, added pre-meal insulin
# High Blood pressure
Could be undiagnosed primary HTN, she refused treatment but advised to control BP to avoid neurological complications as stroke/ bleeding, she agreed, will do Amlodipine.
PRN hydralazine
Hypothyroidism
- continue Synthroid
HX diffuse hepatic steatosis
Diverticulosis
DVT Px: LMWH
Full code
Total time spent to see the patient, examine the patient, review data and lab result, discuss treatment plan with patient, neurologist, nursing staff around 55 minutes
Anticipated Discharge: 24 - 48 hours
Subjective/Interval History
-
Date of Service: October 27, 2024
Less blurred vision
No sob
No chest pain
Objective Data
-
Vital Signs:
Vital Signs
Temp Pulse Resp BP Pulse Ox
97.6 F 50 16 143/79 98
10/27/24 07:00 10/27/24 07:00 10/27/24 07:00 10/27/24 07:55 10/27/24 07:00
I&O
10/26/24 10/27/24 10/28/24
06:59 06:59 06:59
Intake Total 1698 / 1698 1080 / 1080 480 / 480
Balance 1698 / 1698 1080 / 1080 480 / 480
[2024-10-27 12:26] LABS: Glucose - Point of Care 305 mg/dl (70-99)
[2024-10-27] MEDS: NOVOLOG FLEXPEN-MODERATE RESISTANCE 7 UNITS SC ×2 (12:29→16:54)
[2024-10-27 12:45] VITALS: BP 145/55; BP 147/60
[2024-10-27 15:27] VITALS: BP 148/59
[2024-10-27 16:40] LABS: Glucose - Point of Care 303 mg/dl (70-99)
[2024-10-27 21:14] LABS: Glucose - Point of Care 207 mg/dl (70-99)
[2024-10-27 23:15] VITALS: BP 157/60
[2024-10-28] MEDS: PEPCID 20 MG PO ×2 (05:00→20:44)
[2024-10-28] MEDS: SYNTHROID 75 MCG PO (05:00)
[2024-10-28 07:54] LABS: Glucose - Point of Care 150 mg/dl (70-99)
[2024-10-28 08:15] VITALS: BP 134/77
--- NOTE | 2024-10-28 08:22 | W.PN.NEURO.1 ---
Today's Communication / Plan
-
Continue methylprednisolone 1g IV for 5 doses, has received 3 doses
New onset of left hand numbness is of concern as the patient has been treated with high-dose steroids for prior sensory changes and had remediation of same. Must consider EMG testing as outpatient if persistent pain
Neuro Assessment/Plan
Assessment
This is a 64 yo female with a past medical history of HTN and hypothyroidism presented to [facility] on 10/23/2024 with dizziness and weakness following dental implants placed on 10/03/2024 on the left side with most recent brain MRI showing active
demyelinating lesions regarding her multiple sclerosis.
Brain MRI (10/24/2024):
Interval progression of white matter lesions in keeping with demyelinating lesions of multiple sclerosis, compared to prior exam 11/23/2023. There is postcontrast enhancement involving several of these lesions in the bilateral centrum semiovale
regions, suggesting active disease.
No MR evidence for acute intracranial infarct or hemorrhage.
CTA head and neck (10/11/2024): No significant vascular occlusion, aneurysm or dissection.
Brain MRI (11/23/2023):
1. Moderate demyelinating disease (MULTIPLE SCLEROSIS) in the cerebral hemispheres and right middle cerebellar peduncle which appears unchanged from 03/19/2023.
2. Mild cerebral and cerebellar volume loss.
Cervical MRI (11/23/2023):
Better seen on concurrent MRI of the brain, regions of increased T2 and STIR signal within the right middle cerebellar peduncle and within the medulla, likely representing areas of demyelination in this patient with a history of multiple sclerosis.
Evaluation of the cervical spine is limited because of motion artifact. Given this limitation, no convincing evidence for focal demyelinating lesion within the cervical spinal cord.
Changes of degenerative disc disease, greatest at C4-5. These findings appear stable from examination of March 19, 2023.
Thoracic MRI (11/23/2023):
No definite evidence for thoracic spinal cord signal intensity abnormality, with no convincing evidence for focal area of demyelination on today's exam.
No evidence for spinal cord compression or central canal stenosis.
Abrupt onset of diplopia and lightheadedness in the setting of multiple sclerosis exacerbation as evidence by brain MRI with new enhancing lesions
Plan
Continue methylprednisolone 1g IV for 5 doses, has received 3 doses
New onset of left hand numbness is of concern as the patient has been treated with high-dose steroids for prior sensory changes and had remediation of same. Must consider EMG testing as outpatient if persistent pain
needs to start disease modifying therapy outpatient
Vitamin B12 low at 277, started supplementation
Vitamin D level 35.5, increased D3
Will follow peripherally
Subjective/Objective
Subjective Data
Date of Service: October 28, 2024
L head numbness started yesterday. Is constant.
Objective Data
Vital Signs
Temp Pulse Resp BP Pulse Ox
36.5 C 50 18 134/77 97
10/28/24 08:15 10/28/24 08:15 10/28/24 08:15 10/28/24 08:15 10/28/24 08:17
Lab Results
10/26/24 05:59
10/26/24 05:59
Sodium 140 mmol/L (135-145) 10/26/24 05:59
Potassium 4.4 mmol/L (3.5-5.1) 10/26/24 05:59
BUN 17 mg/dl (7-17) 10/26/24 05:59
Glucose 191 mg/dl (70-99) H 10/26/24 05:59
Calcium 9.5 mg/dl (8.4-10.2) 10/26/24 05:59
Vitamin B12 277 pg/ml (239-931) 10/24/24 06:40
Patient Allergies
cephalexin monohydrate (From Keflex) Allergy (Unknown, Verified 10/23/24 17:32)
Unknown
Review of Systems
-
History Source: Patient
All other systems: Reviewed and negative
EENT: Blurry Vision
Musculoskeletal: No Symptoms
Skin: No Symptoms
Neuro: Numbness (mouth numbness)
Physical Exam
-
General: No Apparent Distress, Obese and Appears Stated Age
Eyes: Round OU, Hazel Conjunctivae and No Ptosis
HEENT: Anicteric and Moist Mucous Membranes
Neck: Full Range of Motion
Respiratory: No Dyspnea
Cardiac: No JVD
GI: Non-distended
Skin: Unremarkable
Extremities: No Clubbing, No Cyanosis and No Edema
Psych: Negative Intact Judgement/Insight
Extended Neurological Exam
Mood & Affect: Affect Unremarkable (Irritable)
Attention Span & Concentration: Awake, Alert and Interactive
Memory: Reduced (For the number of treatments that she is already received)
Tremor: Hand Tremor Absent and Head Tremor Absent
Speech: Quality Unremarkable and Quantity Unremarkable
Cranial Nerve II: Left Eye: Pupillary Size Unremarkable and Visual Meza Grossly Intact
Cranial Nerve II: Right Eye: Pupillary Size Unremarkable and Visual Meza Grossly Intact
Cranial Nerves III, IV, : Extraocular Movement: Extraocular Movement Full in all Directions and Other (1+ OS esophoria)
Cranial Nerve VII: Facial Symmetry: Normal Facial Symmetry
Cranial Nerve VIII: Hearing: Unremarkable Hearing to Normal Conversational Volume
Cranial Nerve XI: Shoulder Shrug: Unremarkable
Muscle Bulk & Tone: Bulk Unremarkable and Tone Unremarkable
Touch Sensation: Unremarkable and Other (Negative Phalen's test)
Coordination: Reaches for Objects without Difficulty
Data Reviewed
-
Labs: Report Reviewed
Reviewed with: Nurse Practioner and Patient
Old Records: Summarized
Past History
Past History
ED Past Medical History: Hypothyroidism and Other (Back pain, sciatica, neck pain, multiple sclerosis)
ED Past Surgical History: None
Social History
Tobacco: Non-smoker
Alcohol: None
Drug: None
Personal:
Living: with family
Employment: Employed
Family History
Family History: Other (Noncontributory)
Medications
-
Medications:
Generic Name Dose Route Start Last Admin
Trade Name Freq PRN Reason Stop Dose Admin
Acetaminophen 650 mg 10/23/24 21:38
Acetaminophen 325 Mg Tablet PO 11/20/24 21:37
Q4HPRN PRN
mild pain/[place]/temp> 100.4F
Amlodipine Besylate 5 mg 10/26/24 08:00 10/27/24 07:55
Amlodipine 5 Mg Tablet PO 11/23/24 07:59 5 mg
DAILY NARESH Administration
Bisacodyl 10 mg 10/23/24 21:38
Bisacodyl 10 Mg Rectal Suppository RECTAL 11/20/24 21:37
[id number] PRN
constipation
Cholecalciferol 125 mcg 10/26/24 08:00 10/27/24 07:55
Cholecalciferol (Vitamin D3) 125 Mcg Tablet (5,000 Units) PO 11/23/24 07:59 125 mcg
DAILY NARESH Administration
Cyanocobalamin 1,000 mcg 10/25/24 08:00 10/27/24 07:55
Cyanocobalamin 1,000 Mcg Tablet PO 11/22/24 07:59 1,000 mcg
DAILY NARESH Administration
Dextrose 12.5 grams 10/25/24 10:04
Dextrose 50% (0.5 Grams/Ml) 50 Ml Syringe IV 11/22/24 10:03
[id number] PRN
hypoglycemia
Protocol
Famotidine 20 mg 10/26/24 06:00 10/28/24 05:00
Famotidine 20 Mg Tablet PO 11/23/24 05:59 20 mg
BID@06,1999 NARESH Administration
Glucagon 1 mg 10/25/24 10:04
Glucagon 1 Mg Vial IM 11/22/24 10:03
PRN PRN
hypoglycemia
Protocol
Hydralazine HCl 5 mg 10/25/24 10:04 10/25/24 23:20
Hydralazine 10 Mg Tablet PO 11/22/24 10:03 5 mg
TIDPRN PRN Administration
sbp more than 155
Methylprednisolone Sodium 258 mls @ 258 mls/hr 10/25/24 08:00 10/27/24 07:53
Succinate 1,000 mg/ Sodium IV 10/29/24 08:59 258 mls
Chloride Q24H NARESH Administration
Insulin Glargine 15 units/ 0.15 mls @ 0 mls/hr 10/26/24 08:00 10/27/24 21:15
Device SC 11/23/24 07:59 0.15 mls
BID NARESH Administration
As Directed
Insulin Aspart 0 units 10/25/24 11:30 10/27/24 16:54
Insulin Aspart Moderate Resistance 300 Units/3 Ml Pen.Injctr SC 11/22/24 11:29 7 units
AC NARESH Administration
Protocol
Insulin Aspart 13 units 10/28/24 07:06
Insulin Aspart (Novolog) 100 Units/Ml 3 Ml Flexpen SC 11/23/24 07:29
AC NARESH
Levothyroxine Sodium 75 mcg 10/25/24 06:00 10/28/24 05:00
Levothyroxine 75 Mcg Tablet PO 11/22/24 05:59 75 mcg
DAILY @ 0600 NARESH Administration
Lorazepam 0.5 mg 10/26/24 10:30
Lorazepam 0.5 Mg Tablet PO 11/23/24 10:29
Q8HPRN PRN
anxiety,insomnia
Polyethylene Glycol 17 grams 10/23/24 21:38
Polyethylene Glycol Powder 17 Grams Packet PO 11/20/24 21:37
DAILYPRN PRN
constipation
Senna/Docusate Sodium 1 tablet 10/23/24 21:38
Docusate W/Senna (Shania-Colace) Tablet PO 11/20/24 21:37
BIDPRN PRN
constipation
Sodium Chloride 0 flush 10/23/24 22:00
Sodium Chloride 0.9% (Flush) Syringe IV 11/20/24 21:59
PER PROTOCOL NARESH
[2024-10-28] MEDS: NOVOLOG FLEXPEN 13 UNITS SC ×3 (08:27→17:24)
[2024-10-28] MEDS: NOVOLOG FLEXPEN-MODERATE RESISTANCE 1 UNITS SC (08:28)
[2024-10-28] MEDS: NORVASC 5 MG PO (08:29)
[2024-10-28] MEDS: VITAMIN D3 (cholecalciferol) 125 MCG PO (08:29)
[2024-10-28] MEDS: LANTUS 0.15 UNITS SC ×2 (08:29→21:44)
[2024-10-28] MEDS: SOLU-MEDROL 258 MG IV (08:30)
[2024-10-28] MEDS: FLUSH (NSS) 1 FLUSH IV (08:30)
[2024-10-28] MEDS: VITAMIN B-12 1000 MCG PO (08:30)
--- NOTE | 2024-10-28 09:18 | W.PN.HOSP.TC ---
Today's Communication/Plan
-
.
Assessment / Plan
Assessment / Plan
Physical Exam
General: Well Developed, Well Nourished and No Apparent Distress
HEENT: NormoCephalic, Moist mucous membranes and Atraumatic
Respiratory: Clear
Cardiac: S1/S2 and Regular Rhythm
GI: Soft, Non Tender, Non Distended
Musculoskeletal: No Clubbing, No Cyanosis and No Edema
Skin: No Rash
Neuro: Nonfocal motor deficits, AAOX3, she followed commands
Psych: calm
# Acute MS exacerbation
d/w neurology, recommending to give 1 gm of iV Methylprednisolone for 3-5 days depending on clinical response
d/w pt and her at bed side, agreed to TX and understood potential side effects of high dose steroid
Patient follows with Dr Barbosa at [place], spoke to him on the phone and faxed MRI result, he agreed to IV steroid treatment.
Appreciate neurology recommendations
# pre diabetes
Expect high blood glucose related to steroid
c/w ISS
Increased Lantus, added pre-meal insulin
# High Blood pressure
Could be undiagnosed primary HTN, she refused treatment but advised to control BP to avoid neurological complications as stroke/ bleeding, she agreed, will do Amlodipine.
PRN hydralazine
Hypothyroidism
- continue Synthroid
HX diffuse hepatic steatosis
Diverticulosis
DVT Px: LMWH
Full code
Total time spent to see the patient, examine the patient, review data and lab result, discuss treatment plan with patient, neurologist, nursing staff around 55 minutes
Anticipated Discharge: 24 - 48 hours
Subjective/Interval History
-
Date of Service: October 28, 2024
No chest pain
No sob
Right arm weakness , started yesterday
Objective Data
-
Vital Signs:
Vital Signs
Temp Pulse Resp BP Pulse Ox
97.7 F 50 18 134/74 97
10/28/24 08:15 10/28/24 08:29 10/28/24 08:15 10/28/24 08:29 10/28/24 08:17
I&O
10/27/24 10/28/24 10/29/24
06:59 06:59 06:59
Intake Total 1080 / 1080 1620 / 1620
Balance 1080 / 1080 1620 / 1620
[2024-10-28 11:55] LABS: Glucose - Point of Care 216 mg/dl (70-99)
[2024-10-28] MEDS: NOVOLOG FLEXPEN-MODERATE RESISTANCE 3 UNITS SC (12:45)
--- NOTE | 2024-10-28 14:58 | CM ---
Spoke with pt in room .
She is ambulating well in [place] with staff.
Maintained on IV steroids
Offered VN she declined need at dc.
Her Theodore will drive her home at discharge.
PLAN Home no needs
[2024-10-28 15:33] VITALS: BP 118/87
--- NOTE | 2024-10-28 16:24 | PTCARENOTE ---
Pt AAO x3, SIMMONS well pt still c/o 'numbness ' LUE- sensation (+) to Lt arm. OOB to BR/ambulates in [place] with walker/minimal assistance; denies ambulatory difficulty. VSS. On room air- pulse ox 98%, no SOB. Abd large, soft, abhi PO well. Voids in
BR without difficulty. Resting in bed at present, no c/o. Will continue to monitor.
[2024-10-28 16:36] LABS: Glucose - Point of Care 318 mg/dl (70-99)
[2024-10-28] MEDS: NOVOLOG FLEXPEN-MODERATE RESISTANCE 7 UNITS SC (17:24)
[2024-10-28 21:06] LABS: Glucose - Point of Care 288 mg/dl (70-99)
[2024-10-28] MEDS: MELATONIN 5 MG PO (21:44)
[2024-10-28 23:37] VITALS: BP 169/63
[2024-10-29 00:46] VITALS: BP 153/68
[2024-10-29] MEDS: PEPCID 20 MG PO ×2 (05:16→19:28)
[2024-10-29] MEDS: SYNTHROID 75 MCG PO (05:17)
[2024-10-29 07:10] VITALS: BP 168/67
[2024-10-29 07:53] LABS: Glucose - Point of Care 133 mg/dl (70-99)
--- NOTE | 2024-10-29 08:32 | W.PN.NEURO.1 ---
Today's Communication / Plan
-
Needs to start disease modifying therapy outpatient
Vitamin B12 low at 277, started supplementation, will need lifelong
Vitamin D level 35.5, increased D3
Neuro Assessment/Plan
Assessment
This is a 64 yo female with a past medical history of HTN and hypothyroidism presented to [facility] on 10/23/2024 with dizziness and weakness following dental implants placed on 10/03/2024 on the left side with most recent brain MRI showing active
demyelinating lesions regarding her multiple sclerosis.
Brain MRI (10/24/2024):
Interval progression of white matter lesions in keeping with demyelinating lesions of multiple sclerosis, compared to prior exam 11/23/2023. There is postcontrast enhancement involving several of these lesions in the bilateral centrum semiovale
regions, suggesting active disease.
No MR evidence for acute intracranial infarct or hemorrhage.
CTA head and neck (10/11/2024): No significant vascular occlusion, aneurysm or dissection.
Brain MRI (11/23/2023):
1. Moderate demyelinating disease (MULTIPLE SCLEROSIS) in the cerebral hemispheres and right middle cerebellar peduncle which appears unchanged from 03/19/2023.
2. Mild cerebral and cerebellar volume loss.
Cervical MRI (11/23/2023):
Better seen on concurrent MRI of the brain, regions of increased T2 and STIR signal within the right middle cerebellar peduncle and within the medulla, likely representing areas of demyelination in this patient with a history of multiple sclerosis.
Evaluation of the cervical spine is limited because of motion artifact. Given this limitation, no convincing evidence for focal demyelinating lesion within the cervical spinal cord.
Changes of degenerative disc disease, greatest at C4-5. These findings appear stable from examination of March 19, 2023.
Thoracic MRI (11/23/2023):
No definite evidence for thoracic spinal cord signal intensity abnormality, with no convincing evidence for focal area of demyelination on today's exam.
No evidence for spinal cord compression or central canal stenosis.
Abrupt onset of diplopia and lightheadedness in the setting of multiple sclerosis exacerbation as evidence by brain MRI with new enhancing lesions
Plan
Continue methylprednisolone 1g IV for 5 doses
New onset of left hand numbness is of concern as the patient has been treated with high-dose steroids for prior sensory changes and had remediation of same. Must consider EMG testing as outpatient if persistent pain
Needs to start disease modifying therapy outpatient
Vitamin B12 low at 277, started supplementation, will need lifelong
Vitamin D level 35.5, increased D3
Will follow as needed. Patient to follow-up with her usual outpatient neurologist, Dr. Barbosa
Subjective/Objective
Subjective Data
Date of Service: October 29, 2024
Objective Data
Vital Signs
Temp Pulse Resp BP Pulse Ox
36.3 C 52 16 168/67 99
10/29/24 07:10 10/29/24 07:10 10/29/24 07:10 10/29/24 07:10 10/29/24 07:10
Lab Results
10/26/24 05:59
10/26/24 05:59
Sodium 140 mmol/L (135-145) 10/26/24 05:59
Potassium 4.4 mmol/L (3.5-5.1) 10/26/24 05:59
BUN 17 mg/dl (7-17) 10/26/24 05:59
Glucose 191 mg/dl (70-99) H 10/26/24 05:59
Calcium 9.5 mg/dl (8.4-10.2) 10/26/24 05:59
Vitamin B12 277 pg/ml (239-931) 10/24/24 06:40
Patient Allergies
cephalexin monohydrate (From Keflex) Allergy (Unknown, Verified 10/23/24 17:32)
Unknown
Past History
Past History
ED Past Medical History: Hypothyroidism and Other (Back pain, sciatica, neck pain, multiple sclerosis)
ED Past Surgical History: None
Social History
Tobacco: Non-smoker
Alcohol: None
Drug: None
Personal:
Living: with family
Employment: Employed
Family History
Family History: Other (Noncontributory)
Medications
-
Medications:
Generic Name Dose Route Start Last Admin
Trade Name Freq PRN Reason Stop Dose Admin
Acetaminophen 650 mg 10/23/24 21:38
Acetaminophen 325 Mg Tablet PO 11/20/24 21:37
Q4HPRN PRN
mild pain/[place]/temp> 100.4F
Amlodipine Besylate 5 mg 10/26/24 08:00 10/28/24 08:29
Amlodipine 5 Mg Tablet PO 11/23/24 07:59 5 mg
DAILY NARESH Administration
Bisacodyl 10 mg 10/23/24 21:38
Bisacodyl 10 Mg Rectal Suppository RECTAL 11/20/24 21:37
[id number] PRN
constipation
Cholecalciferol 125 mcg 10/26/24 08:00 10/28/24 08:29
Cholecalciferol (Vitamin D3) 125 Mcg Tablet (5,000 Units) PO 11/23/24 07:59 125 mcg
DAILY NARESH Administration
Cyanocobalamin 1,000 mcg 10/25/24 08:00 10/28/24 08:30
Cyanocobalamin 1,000 Mcg Tablet PO 11/22/24 07:59 1,000 mcg
DAILY NARESH Administration
Dextrose 12.5 grams 10/25/24 10:04
Dextrose 50% (0.5 Grams/Ml) 50 Ml Syringe IV 11/22/24 10:03
[id number] PRN
hypoglycemia
Protocol
Famotidine 20 mg 10/26/24 06:00 10/29/24 05:16
Famotidine 20 Mg Tablet PO 11/23/24 05:59 20 mg
BID@0600,2000 NARESH Administration
Glucagon 1 mg 10/25/24 10:04
Glucagon 1 Mg Vial IM 11/22/24 10:03
PRN PRN
hypoglycemia
Protocol
Hydralazine HCl 5 mg 10/25/24 10:04 10/25/24 23:20
Hydralazine 10 Mg Tablet PO 11/22/24 10:03 5 mg
TIDPRN PRN Administration
sbp more than 155
Methylprednisolone Sodium 258 mls @ 258 mls/hr 10/25/24 08:00 10/28/24 08:30
Succinate 1,000 mg/ Sodium IV 10/29/24 08:59 258 mls
Chloride Q24H NARESH Administration
Insulin Glargine 15 units/ 0.15 mls @ 0 mls/hr 10/26/24 08:00 10/28/24 21:44
Device SC 11/23/24 07:59 0.15 mls
BID NARESH Administration
As Directed
Insulin Aspart 0 units 10/25/24 11:30 10/28/24 17:24
Insulin Aspart Moderate Resistance 300 Units/3 Ml Pen.Injctr SC 11/22/24 11:29 7 units
AC NARESH Administration
Protocol
Insulin Aspart 13 units 10/28/24 07:06 10/28/24 17:24
Insulin Aspart (Novolog) 100 Units/Ml 3 Ml Flexpen SC 11/23/24 07:29 13 units
AC NARESH Administration
Levothyroxine Sodium 75 mcg 10/25/24 06:00 10/29/24 05:17
Levothyroxine 75 Mcg Tablet PO 11/22/24 05:59 75 mcg
DAILY @ 0600 NARESH Administration
Lorazepam 0.5 mg 10/26/24 10:30
Lorazepam 0.5 Mg Tablet PO 11/23/24 10:29
Q8HPRN PRN
anxiety,insomnia
Melatonin 5 mg 10/28/24 22:00 10/28/24 21:44
Melatonin 5 Mg Tablet PO 11/25/24 21:59 5 mg
HS NARESH Administration
Polyethylene Glycol 17 grams 10/23/24 21:38
Polyethylene Glycol Powder 17 Grams Packet PO 11/20/24 21:37
DAILYPRN PRN
constipation
Senna/Docusate Sodium 1 tablet 10/23/24 21:38
Docusate W/Senna (Shania-Colace) Tablet PO 11/20/24 21:37
BIDPRN PRN
constipation
Sodium Chloride 0 flush 10/23/24 22:00 10/28/24 08:30
Sodium Chloride 0.9% (Flush) Syringe IV 11/20/24 21:59 1 flush
PER PROTOCOL NARESH Administration
[2024-10-29] MEDS: NORVASC 5 MG PO (08:45)
[2024-10-29] MEDS: VITAMIN B-12 1000 MCG PO (08:45)
[2024-10-29] MEDS: VITAMIN D3 (cholecalciferol) 125 MCG PO (08:45)
[2024-10-29] MEDS: NOVOLOG FLEXPEN-MODERATE RESISTANCE SC (08:46)
[2024-10-29] MEDS: NOVOLOG FLEXPEN 13 UNITS SC ×3 (08:46→17:54)
[2024-10-29] MEDS: LANTUS 0.15 UNITS SC ×2 (08:47→21:17)
[2024-10-29] MEDS: SOLU-MEDROL 258 MG IV (08:48)
--- NOTE | 2024-10-29 09:42 | W.PN.HOSP.TC ---
Today's Communication/Plan
-
IV steroid ( last dose today)
She wants to talk with neurology about nerve study.
Assessment / Plan
Assessment / Plan
Physical Exam
General: Well Developed, Well Nourished and No Apparent Distress
HEENT: NormoCephalic, Moist mucous membranes and Atraumatic
Respiratory: Clear
Cardiac: S1/S2 and Regular Rhythm
GI: Soft, Non Tender, Non Distended
Musculoskeletal: No Clubbing, No Cyanosis and No Edema
Skin: No Rash
Neuro: Nonfocal motor deficits, AAOX3, she followed commands
Psych: calm
# Acute MS exacerbation
Pt feels much better over all, significant improvement to vision( able to read, no double vision), gait is back to normal, She reports numbness in left upper extremity is better, only mild in hand medical side.
Patient still feels she does not have MS and only demyelinating disease.
d/w neurology, recommending to give 1 gm of IV Methylprednisolone for 5 days
d/w pt and her at bed side, agreed to TX and understood potential side effects of high dose steroid
Patient follows with Dr Barbosa at [place], spoke to him on the phone and faxed MRI result, he agreed to IV steroid treatment.
Appreciate neurology recommendations
# pre diabetes
Expect high blood glucose related to steroid
c/w ISS
Increased Lantus, added pre-meal insulin
# High Blood pressure
Could be undiagnosed primary HTN, she refused treatment but advised to control BP to avoid neurological complications as stroke/ bleeding, she agreed, will do Amlodipine.
PRN hydralazine
#Hypothyroidism
- continue Synthroid
# HX diffuse hepatic steatosis
Diverticulosis
# Insomnia
On Melatonin
DVT Px: LMWH
Full code
Total time spent to see the patient, examine the patient, review data and lab result, discuss treatment plan with patient, nursing staff around 55 minutes
Anticipated Discharge: Within 24 hours
Subjective/Interval History
-
Date of Service: October 29, 2024
She reports vision is much better, gait is back to normal, left UE much less numbness
Objective Data
-
Vital Signs:
Vital Signs
Temp Pulse Resp BP Pulse Ox
97.4 F 58 16 168/67 99
10/29/24 07:10 10/29/24 08:45 10/29/24 07:10 10/29/24 08:45 10/29/24 07:10
I&O
10/28/24 10/29/24 10/30/24
06:59 06:59 06:59
Intake Total 1620 / 1620 2077
Balance 1620 / 1620 2077
[2024-10-29 12:07] LABS: Glucose - Point of Care 150 mg/dl (70-99)
[2024-10-29] MEDS: NOVOLOG FLEXPEN-MODERATE RESISTANCE 1 UNITS SC (12:58)
[2024-10-29 15:10] VITALS: BP 148/98
[2024-10-29 15:29] VITALS: BP 148/98; PULSE 62; O2SAT 97
[2024-10-29 16:55] LABS: Glucose - Point of Care 296 mg/dl (70-99)
[2024-10-29] MEDS: NOVOLOG FLEXPEN-MODERATE RESISTANCE 5 UNITS SC (17:53)
--- NOTE | 2024-10-29 18:33 | PTCARENOTE ---
Received patient this am AAOx3. Pt anxious and forgetful. Pt tolerated diet well. OOB ambulating to bathroom with assistance of one. Offered no complaints. Made patient comfortable. Cont to assess patient status.
[2024-10-29 21:16] LABS: Glucose - Point of Care 255 mg/dl (70-99)
[2024-10-29] MEDS: MELATONIN 5 MG PO (21:17)
[2024-10-29 23:19] VITALS: BP 153/55
[2024-10-30] MEDS: SYNTHROID 75 MCG PO (05:03)
[2024-10-30] MEDS: PEPCID 20 MG PO ×2 (05:03→20:47)
[2024-10-30 07:20] VITALS: BP 160/60
[2024-10-30 07:24] LABS: Glucose - Point of Care 140 mg/dl (70-99)
[2024-10-30] MEDS: NOVOLOG FLEXPEN-MODERATE RESISTANCE SC ×2 (08:17→12:17)
[2024-10-30] MEDS: NORVASC 5 MG PO (08:18)
[2024-10-30] MEDS: VITAMIN D3 (cholecalciferol) 125 MCG PO (08:18)
[2024-10-30] MEDS: VITAMIN B-12 1000 MCG PO (08:18)
[2024-10-30] MEDS: NOVOLOG FLEXPEN 13 UNITS SC ×3 (08:18→16:41)
[2024-10-30] MEDS: LANTUS 0.15 UNITS SC ×2 (08:25→21:22)
[2024-10-30 09:30] VITALS: BP 148/64
--- NOTE | 2024-10-30 09:36 | W.PN.HOSP.TC ---
Today's Communication/Plan
-
Consult family educator
Continue with insulin treatment
Assessment / Plan
Assessment / Plan
Physical Exam
General: Well Developed, Well Nourished and No Apparent Distress
HEENT: NormoCephalic, Moist mucous membranes and Atraumatic
Respiratory: Clear
Cardiac: S1/S2 and Regular Rhythm
GI: Soft, Non Tender, Non Distended
Musculoskeletal: No Clubbing, No Cyanosis and No Edema
Skin: No Rash
Neuro: Nonfocal motor deficits, AAOX3, she followed commands
Psych: calm
# Acute MS exacerbation
Pt feels much better over all, significant improvement to vision( able to read, no double vision), gait is back to normal, She reports numbness in left upper extremity is better, only mild in hand medical side.
Patient still feels she does not have MS and only demyelinating disease. Patient feels that her facial numbness related to her dental implant procedure.
d/w neurology, recommending to give 1 gm of IV Methylprednisolone for 5 days, finish course
d/w pt and her at bed side, agreed to TX and understood potential side effects of high dose steroid
Patient follows with Dr Barbosa at [place], spoke to him on the phone and faxed MRI result, he agreed to IV steroid treatment.
Appreciate neurology recommendations , to follow-up with a primary neurologist for further studies/treatment
# pre diabetes
Expect high blood glucose related to steroid
c/w ISS
Increased Lantus, added pre-meal insulin consult family educator for recommendations upon discharge
# High Blood pressure
Could be undiagnosed primary HTN, she refused treatment but advised to control BP to avoid neurological complications as stroke/ bleeding, she agreed, will do Amlodipine.
PRN hydralazine
#Hypothyroidism
- continue Synthroid
# HX diffuse hepatic steatosis
Diverticulosis
# Insomnia
On Melatonin
DVT Px: LMWH
Full code
Total time spent to see the patient, examine the patient, review data and lab result, discuss treatment plan with patient, nursing staff around 55 minutes
Anticipated Discharge: 24 - 48 hours
Subjective/Interval History
-
Date of Service: October 30, 2024
No chest pain
No sob
Vision is much improved
Objective Data
-
Vital Signs:
Vital Signs
Temp Pulse Resp BP Pulse Ox
98.2 F 58 20 160/60 98
10/30/24 07:20 10/30/24 08:18 10/30/24 07:20 10/30/24 08:18 10/30/24 07:20
I&O
10/29/24 10/30/24 10/31/24
06:59 06:59 06:59
Intake Total 2077 498 / 498
Balance 2077 498 / 498
[2024-10-30 11:10] LABS: Glucose - Point of Care 119 mg/dl (70-99)
[2024-10-30 12:02] LABS: Glucose - Point of Care 143 mg/dl (70-99)
[2024-10-30 15:50] VITALS: BP 166/62
[2024-10-30 16:03] VITALS: BP 166/62; PULSE 58; O2SAT 98
[2024-10-30] MEDS: APRESOLINE 5 MG PO (16:35)
[2024-10-30 16:40] LABS: Glucose - Point of Care 191 mg/dl (70-99)
[2024-10-30] MEDS: NOVOLOG FLEXPEN-MODERATE RESISTANCE 1 UNITS SC (16:40)
--- NOTE | 2024-10-30 17:00 | PTCARENOTE ---
Received patient this am AAOx3. Pt forgetful an anxious. Pt B/P this am was 160/60. Pt given am Norvasc. 09:30 Pt's B/P rechecked 148/64. 15:50 B/P was 166/62. Pt medicated with Hydralazine 5mg PO as ordered. Pt tolerated diet well. Pt's family
brings in food to patient and patient also orders trays from Hospital. OOB ambulating to bathroom with assistance x1. Pt offered no complaints. Made patient comfortable. Cont to assess patient status.
[2024-10-30 21:09] LABS: Glucose - Point of Care 182 mg/dl (70-99)
[2024-10-30] MEDS: MELATONIN 5 MG PO (21:22)
[2024-10-30 23:10] VITALS: BP 103/61
[2024-10-31 03:37] LABS: Glucose - Point of Care 97 mg/dl (70-99)
[2024-10-31] MEDS: SYNTHROID 75 MCG PO (06:06)
[2024-10-31] MEDS: PEPCID 20 MG PO (06:06)
[2024-10-31 07:00] VITALS: BP 140/63
[2024-10-31 07:01] LABS: Hematocrit 36.1 % (37.0-47.0); Hemoglobin 12.7 g/dL (12.0-16.0); Mean Corp Hgb Conc. 35.2 g/dL (33.0-37.0); Mean Corpuscular Hgb 32.1 pg (27.0-31.0); Mean Corpuscular Volume 91.2 fL (81.0-99.0); Mean Platelet Volume 11.6 fL (7.4-10.4); Platelet Count 167 10^3/uL (130-400); Red Blood Cell Count 3.96 10^6/uL (4.20-5.40); Red Cell Dist. Width 12.4 % (11.5-14.5); White Blood Cell Count 8.4 10^3/uL (4.8-10.8)
[2024-10-31 08:17] LABS: Glucose - Point of Care 70 mg/dl (70-99)
--- NOTE | 2024-10-31 08:26 | PN.DE.MGMTRT ---
Insulin Management
- -
10/31/2524: Diabetes Management Consult
64 year old female with PMH: HTN, Hypothyroidism and Newly Dx T2DM. Pt presented to [facility] on 10/23/2024 with dizziness and weakness following dental implants placed on 10/03/2024 on the left side with most recent brain MRI showing active
demyelinating lesions regarding her multiple sclerosis.
Pt was treated with a short course of steroids contributing to Hyperglycemia.
Steroids have since been stopped, glucose has improved to a low normal.
Pt awake, alert, oriented, very anxious but able to discuss diabetes care plan. Pt is very adamant that she does not have diabetes, states she is pre-diabetic. Had a lengthy discussion with pt regarding the true dx of diabetes.
Discussed her current A1C. Pt reports she has a working glucose monitor at home and has been monitoring her blood sugars every morning, and has noted fasting blood sugars in the range of 100-140's.
Explained to pt that with her current A1C of 6.5% and reports of FBG up to 140 indicates that she has diabetes.
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
her diet and physical activity.
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
Will stop Lantus and AC NovoLog since all steroids were discontinued.
Start Metformin 500mg BID, 1st dose now and glipizide 2.5mg daily, 1st dose now. Cont low corrective insulin with meals
Pt dose not need a glucose monitor since she has a working meter at home.
Discussed with Nurse at beside.
Diabetes History
- -
Type of Diabetes: 2
Pre-Admission Diabetes Regimen
Lab Results
Hemoglobin A1c 6.5 % (4.0-5.6) H 10/26/24 05:59
Insulin Pump Settings
IP Diabetes Regimen
10/30/24 10/30/2410/30/25
11:09 12:00 16:39
POC Glucose 119 H 143 H 191 H
10/30/24 10/31/24 10/31/24
21:07 03:36 08:16
POC Glucose 182 H 97 70
Patient Education
[2024-10-31] MEDS: NOVOLOG FLEXPEN-MODERATE RESISTANCE SC (08:35)
[2024-10-31] MEDS: NOVOLOG FLEXPEN SC (08:41)
[2024-10-31] MEDS: LANTUS SC (08:42)
--- NOTE | 2024-10-31 09:37 | CM ---
Completed IV steroids.
Adjusting insulin /maintained on ADA diet.
Offered VN she declined need.
Her will drive her home at in.
PLAN Home no needs
[2024-10-31] MEDS: VITAMIN B-12 1000 MCG PO (09:40)
[2024-10-31] MEDS: GLUCOTROL 2.5 MG PO (09:40)
[2024-10-31] MEDS: VITAMIN D3 (cholecalciferol) 125 MCG PO (09:40)
[2024-10-31] MEDS: GLUCOPHAGE 500 MG PO (09:40)
[2024-10-31] MEDS: NORVASC 5 MG PO (09:40)
--- NOTE | 2024-10-31 11:25 | W.PN.HOSP.TC ---
Today's Communication/Plan
-
f/u with primary neurologist
dm management
Assessment / Plan
Assessment / Plan
Physical Exam
General: Well Developed, Well Nourished and No Apparent Distress
HEENT: NormoCephalic, Moist mucous membranes and Atraumatic
Respiratory: Clear
Cardiac: S1/S2 and Regular Rhythm
GI: Soft, Non Tender, Non Distended
Musculoskeletal: No Clubbing, No Cyanosis and No Edema
Skin: No Rash
Neuro: Nonfocal motor deficits, AAOX3, she followed commands
Psych: calm
# Acute MS exacerbation
Pt feels much better over all, significant improvement to vision( able to read, no double vision), gait is back to normal, She reports numbness in left upper extremity is better, only mild in hand medical side.
Patient still feels she does not have MS and only demyelinating disease. Patient feels that her facial numbness related to her dental implant procedure.
d/w neurology, recommending to give 1 gm of IV Methylprednisolone for 5 days, finish course
d/w pt and her at bed side, agreed to TX and understood potential side effects of high dose steroid
Patient follows with Dr Barbosa at [place], spoke to him on the phone and faxed MRI result, he agreed to IV steroid treatment.
Appreciate neurology recommendations , to follow-up with a primary neurologist for further studies/treatment
#DM2 a1c of 6.5
Expect high blood glucose related to steroid
c/w ISS
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
# High Blood pressure
Could be undiagnosed primary HTN, she refused treatment but advised to control BP to avoid neurological complications as stroke/ bleeding, she agreed, will do Amlodipine.
PRN hydralazine
#Hypothyroidism
- continue Synthroid
# HX diffuse hepatic steatosis
Diverticulosis
# Insomnia
On Melatonin
DVT Px: LMWH
Full code
More than 30 minutes spent in discharge including
Final examination of the patient
Summarizing hospital stay
Instructions for continuing care to all relevant caregivers
Preparation of discharge records, prescriptions, and referral forms
Total time spent (in minutes): 52
Anticipated Discharge: Today
Subjective/Interval History
-
Date of Service: October 31, 2024
feeling better
Objective Data
-
Labs:
Laboratory Results
10/31/24
06:00
WBC 8.4
Hgb 12.7
Hct 36.1 L
Plt Count 167
Sodium Pending
Potassium Pending
Chloride Pending
Carbon Dioxide Pending
BUN Pending
Creatinine Pending
Glucose Pending
Calcium Pending
Vital Signs:
Vital Signs
Temp Pulse Resp BP Pulse Ox
97.9 F 53 16 140/63 98
10/31/24 07:00 10/31/24 07:00 10/31/24 07:00 10/31/24 07:00 10/31/24 08:40
I&O
10/30/24 10/31/24 11/01/24
06:59 06:59 06:59
Intake Total 498 / 498 600 / 600
Balance 498 / 498 600 / 600
--- NOTE | 2024-10-31 11:35 | W.DCSUMMARY ---
Discharge Summary
Discharge Data
Date of Admission: 10/25/24
Date of Discharge: 10/31/24
-
Pending Results: No
Hospital Course
64-year-old female past medical history of hypothyroidism was presenting with complaint of abnormal vision and right-sided facial paresthesias. Patient was eval by neurology and diabetic nurse practitioner. Brain MRI (10/24/2024): Interval
progression of white matter lesions in keeping with demyelinating lesions of multiple sclerosis, compared to prior exam 11/23/2023. There is postcontrast enhancement involving several of these lesions in the bilateral centrum semiovale regions,
suggesting active disease. No MR evidence for acute intracranial infarct or hemorrhage. CTA head and neck (10/11/2024): No significant vascular occlusion, aneurysm or dissection. Neurology recommended patient to be started on methylprednisolone 1 g
x 5 days. Patient was also started to have low vitamin B12 with iron supplementation. Patient case was discussed by by Dr. Dai with patient primary neurologist at [place]. Patient with significant improvement in symptomology and was read by
physical and Occupational Therapy. Patient stated her symptoms resolved. Patient was also found to elevated blood pressure and was started on Norvasc. Patient was also found uncontrolled diabetes and was started on metformin and glipizide.
Patient was recommended follow-up with her primary neurologist.
Discharge Plan
-
Patient Disposition: Home (Routine Discharge)
Discharge Diagnosis/Procedures: Abrupt onset of diplopia and lightheadedness in the setting of demyelinating disease likely multiple sclerosis exacerbation as evidence by brain MRI with new enhancing lesions
Diabetes mellitus
Primary hypertension
Vitamin b12 deficiency
Condition: Fair
Diet: Diabetic, Carb Controlled
Activity: As tolerated
Driving Restrictions: As prior to admission
Activity Restrictions/Additional Instructions:
Follow up with your primary neurologist Dr Barbosa at [place]
Referrals:
Adolfo Sigala MD [Family Provider, Internal Medicine] - in less than 1 week
Prescriptions:
New
metformin 500 mg Tablet
500 mg PO BID@0800,1700 30 Days Qty: 60 0RF
cyanocobalamin (vitamin B-12) [Vitamin B-12] 1,000 mcg Tablet
1,000 mcg PO DAILY 30 Days Qty: 30 0RF
amlodipine 5 mg Tablet
5 mg PO DAILY 30 Days Qty: 30 0RF
glipizide 2.5 mg tablet
2.5 mg PO DAILY Qty: 30 0RF
(DME) blood-glucose meter [Accu-Chek Guide Glucose Meter] Misc
Qty: 1 0RF
Rx Instructions:
As Directed
(DME) Accu-Chek Guide test strips Strip
Qty: 100 0RF
Rx Instructions:
TID AC
Continued
ibuprofen 200 mg capsule
200 mg PO Q8H PRN (Reason: fever or pain) Qty: 1 0RF
levothyroxine
0.75 mcg PO DAILY
Vitamin D2 2,000 mg
2,000 mg PO DAILY
Rx Instructions:
pt hs own med
famotidine [Pepcid] 20 mg Tablet
20 mg PO BID
Discontinued
RabAvert (PF) 2.5 unit suspension for reconstitution
2.5 unit IM ONCE Qty: 3 0RF
Rx Instructions:
Inject 1mL on 01/01/24, 01/05/24, 01/12/24
Discharge Orders:
Discharge Patient (As Directed); Ordered 10/31/24
Ordered By: aBrtolo Shay
Discharge Date and Time
Discharge Date/Time: 10/31/24 12:49
Print Language: DUTCH
[2024-10-31 11:45] LABS: Blood Urea Nitrogen 34 mg/dl (7-17); Calcium 8.1 mg/dl (8.4-10.2); Carbon Dioxide 20 mmol/L (22-30); Chloride 113 mmol/L (98-107); Estimated Creatinine Clearance 77 ml/min; Glucose 116 mg/dl (70-99); Potassium 3.7 mmol/L (3.5-5.1); Sodium 137 mmol/L (135-145); eGFR > 60.00
== END 2024-10-31 12:49 | disposition home or self-care (01) | DRG 60 ==
LOC: 4 EAST ACU 10:17
PROVIDERS: Internal Medicine; Nurse Practitioner; ADMITTING PHYSICIAN Internal Medicine; ATTENDING PHYSICIAN Hospitalist; EMERGENCY PHYSICIAN Emergency Medicine; FAMILY PHYSICIAN Internal Medicine; OTHER PHYSICIAN Psychiatry & Neurology Neurology
DX: G35 Multiple sclerosis (principal); E11.9 Type 2 diabetes mellitus without complications; E03.9 Hypothyroidism, unspecified; I10 Essential (primary) hypertension; E53.8 Deficiency of other specified B group vitamins; K57.30 Diverticulosis of large intestine without perforation or abscess without bleeding; K76.0 Fatty (change of) liver, not elsewhere classified; G47.00 Insomnia, unspecified; Z79.899 Other long term (current) drug therapy; Z91.199 Patient's noncompliance with other medical treatment and regimen due to unspecified reason
CPT/HCPCS: 70553; 80048; 82306; 82607; 82962; 83036; 84443; 85025; 85027; 97116; 97163; 97167; 97530; 99284; A9575

== ENCOUNTER → 2024-12-06 10:21 | Outpatient (REF) | payer OTHER, SELFPAY | LOC: PAVMRI 10:21 | PROVIDERS: ATTENDING PHYSICIAN Psychiatry & Neurology Neurology; FAMILY PHYSICIAN Internal Medicine; REFERRING PHYSICIAN Specialist | DX: G37.9 Demyelinating disease of central nervous system, unspecified (principal); G37.3 Acute transverse myelitis in demyelinating disease of central nervous system; H53.2 Diplopia; R20.0 Anesthesia of skin | CPT/HCPCS: 70543; 70553; 72156; A9575 ==

== ENCOUNTER 2024-12-09 06:29 | Day surgery (SDC) | payer OTHER, SELFPAY | END 2024-12-09 13:50 | disposition home or self-care (01) | LOC: GI 06:29 | PROVIDERS: ATTENDING PHYSICIAN Internal Medicine Gastroenterology | DX: Z12.11 Encounter for screening for malignant neoplasm of colon (principal); K57.30 Diverticulosis of large intestine without perforation or abscess without bleeding; K64.8 Other hemorrhoids; R19.4 Change in bowel habit; Z86.0100 Personal history of colon polyps, unspecified | CPT/HCPCS: 45380; 88305 ==

== ENCOUNTER → 2024-12-22 08:01 | Outpatient (REF) | payer OTHER, SELFPAY | LOC: RAD 08:01 | PROVIDERS: ATTENDING PHYSICIAN Psychiatry & Neurology Neurology; FAMILY PHYSICIAN Internal Medicine | DX: G37.9 Demyelinating disease of central nervous system, unspecified (principal) | CPT/HCPCS: 71270; 74178; Q9967 ==

== ENCOUNTER → 2025-01-15 10:16 | Outpatient (REF) | payer OTHER, SELFPAY | LOC: MRI 3T 10:16 | PROVIDERS: ATTENDING PHYSICIAN Psychiatry & Neurology Neurology; FAMILY PHYSICIAN Internal Medicine | DX: G37.9 Demyelinating disease of central nervous system, unspecified (principal); G37.3 Acute transverse myelitis in demyelinating disease of central nervous system; H53.2 Diplopia; R20.0 Anesthesia of skin | CPT/HCPCS: 72157; A9575 ==

== ENCOUNTER → 2025-03-05 07:44 | Outpatient (REF) | payer MEDICARE, BC, SELFPAY | LOC: PAVMRI 07:44 | PROVIDERS: ATTENDING PHYSICIAN Orthopaedic Surgery; FAMILY PHYSICIAN Internal Medicine | DX: M25.562 Pain in left knee (principal) | CPT/HCPCS: 73721 ==

== ENCOUNTER → 2025-04-07 10:40 | Outpatient (REF) | payer MEDICARE, BC, SELFPAY | LOC: WDC 10:40 | PROVIDERS: ATTENDING PHYSICIAN Obstetrics & Gynecology; FAMILY PHYSICIAN Internal Medicine | DX: Z12.31 Encounter for screening mammogram for malignant neoplasm of breast (principal); Z78.0 Asymptomatic menopausal state | CPT/HCPCS: 77063; 77067; 77080 ==